=== PATIENT | male | born 1965 | race American Indian/Alaskan Native ===

== ENCOUNTER 2016-10-25 14:32 | Inpatient (IN) | payer MEDICAID ==
--- NOTE | 2016-10-25 15:12 | C.PDOC ---
History Of Present Illness 51-year-old male, PMHx includes Seizures (on Keppra), is brought to the emergency department by EMS, accompanied by father with complaints of a witnessed tonic colonic seizure just prior to arrival, that lasted a few minutes. In ED, patient appears to be post-ictal. No vomiting, bladder/bowel incontinence, tongue lacerations, or any other associated symptoms. Time Seen by Provider: 10/25/16 14:44 Chief Complaint (Nursing): Seizure History Per: Family History/Exam Limitations: no limitations Recent Seizure Activity Began: Just Before Arrival Length Of Seizures (Duration): Minutes Past Medical History Reviewed: Historical Data, Nursing Documentation, Vital Signs Vital Signs: Last Vital Signs Temp 99.2 F 10/25/16 15:15 Pulse 81 10/25/16 17:45 Resp 95 H 10/25/16 16:17 BP 152/111 H 10/25/16 17:45 Pulse Ox 96 10/25/16 16:41 - Medical History PMH: No Chronic Diseases Family History: States: No Known Family Hx - Social History Hx Alcohol Use: No Hx Substance Use: No - Immunization History Hx Tetanus Toxoid Vaccination: No Hx Influenza Vaccination: No Hx Pneumococcal Vaccination: No Review Of Systems Except As Marked, All Systems Reviewed And Found Negative. Constitutional: Negative for: Fever, Chills Cardiovascular: Negative for: Chest Pain Respiratory: Negative for: Shortness of Breath Gastrointestinal: Negative for: Nausea, Vomiting Skin: Negative for: Rash Neurological: Negative for: Weakness, Numbness, Headache, Dizziness Physical Exam - Physical Exam Appears: Non-toxic, No Acute Distress, Other (post-ictal) Skin: Warm, Dry, No Rash Head: Atraumatic, Normacephalic Eye(s): bilateral: Normal Inspection, PERRL, EOMI Ear(s): Bilateral: Normal Nose: Normal Oral Mucosa: Moist Lips: Normal Appearing Neck: Normal ROM Cardiovascular: Rhythm Regular, No Friction Rub, No Murmur Respiratory: Normal Breath Sounds, No Accessory Muscle Use Gastrointestinal/Abdominal: Soft, No Tenderness Extremity: Normal ROM, No Tenderness, No Swelling Neurological/Psych: Oriented x3, Normal Cranial Nerves, Normal Motor, Other (No focal deficit) Gait: Steady ED Course And Treatment - Laboratory Results Result Diagrams: 10/25/16 15:22 10/25/16 15:22 O2 Sat by Pulse Oximetry: 96 (on RA) Pulse Ox Interpretation: Normal Medical Decision Making Medical Decision Making: Old visits reviewed, and there are no prior visits. At 1315, the patient experienced a seizure in the ED. Patient was placed on NRB. Ativan 2mg IM ordered. BP found to be elevated. Labetalol and Lopressor given,. On second re-exam the patient continues to be drowsy and post-ictal. The case was discussed with Dr. Martino who agrees to admit the patient to her service. requests neurologist consult for Dr. Alan. Disposition - Disposition Disposition: HOSPITALIZED Disposition Time: 16:39 Condition: FAIR - POA Present On Arrival: None - Clinical Impression Clinical Impression: Seizure, Uncontrolled hypertension - Scribe Statement The provider has reviewed the documentation as recorded by the Scribe (Isabella Virk) All medical record entries made by the Scribe were at my direction and personally dictated by me. I have reviewed the chart and agree that the record accurately reflects my personal performance of the history, physical exam, medical decision making, and the department course for this patient. I have also personally directed, reviewed, and agree with the discharge instructions and disposition.
[2016-10-25 15:26] LABS: BASO % 0.3 % (0.0-2.0); HEMOGLOBIN 14.3 g/dL (12.0-18.0); LYMPH # 1.1 K/uL (1.0-4.3); LYMPH % 10.9 % (20.0-40.0); MEAN CELL VOLUME 94.5 fL (80.0-94.0); MEAN CORPUSCULAR HEMOGLOBIN 31.9 pg (27.0-31.0); MEAN CORPUSCULAR HGB CONC 33.7 g/dL (33.0-37.0); MONO # 1.1 K/uL (0.0-0.8); MONO % 11.3 % (0.0-10.0); NEUT # 7.9 K/uL (1.8-7.0); NEUT % 77.5 % (50.0-75.0); RBC 4.47 Mil/uL (4.40-5.90); RED CELL DISTRIBUTION WIDTH 13.6 % (11.5-14.5); WHITE BLOOD COUNT 10.2 K/uL (4.8-10.8)
[2016-10-25 15:41] LABS: ALBUMIN 4.6 g/dL (3.5-5.0)
[2016-10-25 15:44] LABS: ALB/GLOB RATIO 1.3 (1.0-2.1); ALT/SGPT 27 U/L (21-72); AST/SGOT 37 U/L (17-59); BLOOD UREA NITROGEN 13 mg/dL (9-20); CALCIUM 9.4 mg/dl (8.6-10.4); GFR AFRICAN-AMERICAN > 60; GFR NON-AFRICAN AMERICAN > 60
[2016-10-25 15:56] LABS: URINE BACTERIA RARE (<OCC); URINE BILIRUBIN NEGATIVE (NEGATIVE); URINE BLOOD 2+ (NEGATIVE); URINE CLARITY Hazy (Clear); URINE COLOR Yellow (YELLOW); URINE GLUCOSE (UA) NORMAL (Normal); URINE LEUKOCYTE ESTERASE NEG Leu/uL (Negative); URINE NITRATE NEGATIVE (NEGATIVE); URINE PROTEIN 3+ mg/dL (NEGATIVE); URINE UROBILINOGEN NORMAL mg/dL (0.2-1.0)
[2016-10-25 16:01] LABS: BENZODIAZEPINES, UR NEGATIVE (NEGATIVE)
[2016-10-25 16:02] LABS: BARBITURATES, UR NEGATIVE (NEGATIVE)
[2016-10-25 16:03] LABS: OPIATES, UR NEGATIVE (NEGATIVE)
[2016-10-25 16:04] LABS: PHENCYCLIDINE, UR NEGATIVE (NEGATIVE)
--- NOTE | 2016-10-25 16:35 | CT ---
PROCEDURE: CT HEAD WITHOUT CONTRAST. HISTORY: seizure COMPARISON: None available. TECHNIQUE: Axial computed tomography images were obtained through the head/brain without intravenous contrast. Radiation dose: Total exam DLP = 900.9 mGy-cm. This CT exam was performed using one or more of the following dose reduction techniques: Automated exposure control, adjustment of the mA and/or kV according to patient size, and/or use of iterative reconstruction technique. FINDINGS: HEMORRHAGE: No intracranial hemorrhage. BRAIN: Focal encephalomalacia and gliosis seen at the left frontal lobe. There is also small focal encephalomalacia adjacent to the right lateral ventricle. No atrophy or chronic microvascular ischemic changes. VENTRICLES: Unremarkable. No hydrocephalus. CALVARIUM: Deformity in the right zygomatic arch and lateral wall of the right maxillary sinus suggestive of old fractures. PARANASAL SINUSES: Mild mucosal thickening and small air-fluid level seen at the right maxillary sinus suggestive of sinusitis. MASTOID AIR CELLS: Unremarkable as visualized. No inflammatory changes. OTHER FINDINGS: None. IMPRESSION: No evidence of acute intracranial hemorrhage mass effect or midline shift. Moderate-size encephalomalacia at the left frontal lobe and small size encephalomalacia at the right basal ganglia suggestive of old injury. Old fracture at the right zygomatic arch and lateral wall of the right maxillary sinus. Mucosal thickening and air-fluid level at the right maxillary sinus suggestive of sinusitis.
[2016-10-25] MEDS ORDERED: Labetalol 25mg/5ml Syringe IV STA (16:37)
[2016-10-25] MEDS ORDERED: Labetalol 25mg/5ml Syringe ONE ×2 (16:58→20:27)
[2016-10-25] MEDS ORDERED: Metoprolol 1 mg/ml Inj IVP STA (17:17)
--- NOTE | 2016-10-25 17:21 | RAD ---
PROCEDURE: CHEST RADIOGRAPH, 1 VIEW HISTORY: Seizure COMPARISON: None available. FINDINGS: LUNGS: No evidence of infiltrate or consolidation in the lungs PLEURA: No pneumothorax or pleural fluid seen. CARDIOVASCULAR: Normal. OSSEOUS STRUCTURES: No significant abnormalities. VISUALIZED UPPER ABDOMEN: Normal. OTHER FINDINGS: None. IMPRESSION: No active disease.
[2016-10-25] MEDS ORDERED: Sodium Chloride 0.9% 1,000 ML IV ONE (17:52)
[2016-10-25] MEDS ORDERED: Metoprolol 1 mg/ml Inj IVP ONE (19:51)
[2016-10-25] MEDS ORDERED: Labetalol 25mg/5ml Syringe IVP STA (20:23)
[2016-10-25] MEDS ORDERED: Nitroglycerin 2% Ointment Foilpak UD TOP STA (21:59)
[2016-10-25] MEDS ORDERED: Nitroglycerin 2% Ointment Foilpak UD TOP ONE (22:12)
[2016-10-26 08:09] LABS: BASO # 0.1 K/uL (0.0-0.2); BASO % 0.5 % (0.0-2.0); EOS % 0.2 % (0.0-4.0); HEMOGLOBIN 12.5 g/dL (12.0-18.0); LYMPH # 1.7 K/uL (1.0-4.3); MEAN CELL VOLUME 96.1 fL (80.0-94.0); MEAN CORPUSCULAR HGB CONC 33.3 g/dL (33.0-37.0); MEAN PLATELET VOLUME 9.3 fL (7.2-11.7); MONO % 9.9 % (0.0-10.0); NEUT # 7.7 K/uL (1.8-7.0); NEUT % 73.4 % (50.0-75.0); RBC 3.91 Mil/uL (4.40-5.90); RED CELL DISTRIBUTION WIDTH 13.5 % (11.5-14.5); WHITE BLOOD COUNT 10.5 K/uL (4.8-10.8)
[2016-10-26 08:31] LABS: ALBUMIN 3.8 g/dL (3.5-5.0)
[2016-10-26 08:34] LABS: ALB/GLOB RATIO 1.2 (1.0-2.1); ALT/SGPT 28 U/L (21-72); AST/SGOT 25 U/L (17-59); BLOOD UREA NITROGEN 13 mg/dL (9-20); CALCIUM 8.9 mg/dl (8.6-10.4); GFR AFRICAN-AMERICAN > 60; GFR NON-AFRICAN AMERICAN > 60
[2016-10-26 08:35] LABS: HDL CHOLESTEROL 67 mg/dL (30-70)
[2016-10-26 08:46] LABS: LDL CHOLESTEROL 71 mg/dL (0-129)
[2016-10-26] MEDS: levETIRAcetam 100 mg/ml (5ml) Oral Syringe PO SCH ×2 (09:39→17:58)
--- NOTE | 2016-10-26 10:28 | CP.PCM.PN ---
Subjective - Date & Time of Evaluation Date of Evaluation: 10/26/16 Time of Evaluation: 09:50 - Subjective Subjective: Patient is seen and examined at bedside. Denies any further episodes of seizures. denies any headache, chest pain. Objective - Vital Signs/Intake and Output Vital Signs (last 24 hours): Temp Pulse Resp BP Pulse Ox 98.5 F 64 20 167/97 H 97 10/26/16 00:00 10/26/16 04:00 10/26/16 00:00 10/26/16 09:39 10/26/16 00:00 Intake and Output: 10/26/16 10/26/16 06:59 18:59 Intake Total 240 Balance 240 - Medications Medications: Current Medications Carvedilol (Coreg) 25 mg PO BID [facility] Last Admin: 10/26/16 09:39 Dose: 25 mg Carvedilol (Coreg) 25 mg PO BID [facility] Last Admin: 10/26/16 10:09 Dose: Not Given Levetiracetam (Keppra) 750 mg PO BID [facility] Last Admin: 10/26/16 09:39 Dose: 750 mg Rosuvastatin Calcium (Crestor) 5 mg PO [facility] - Labs Labs: 10/26/16 07:59 10/26/16 07:59 Assessment and Plan - Assessment and Plan (Free Text) Assessment: middle aged male with Uncontrolled hypertension Seizure disorder with break through seizures probably secondary to non compliance Hypokalemia Right Maxillary sinusitis Plan: Keppra increased to 750 mg po bid Continue with coreg 25 mg po bid Start lisinopril 10 mg po daily adjust meds as needed Supplement Kdur Start rocephin for sinusitis
[2016-10-26] MEDS ORDERED: Potassium Chloride 20 mEq ER Tab PO STA (11:15)
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
[2016-10-27] MEDS: levETIRAcetam 100 mg/ml (5ml) Oral Syringe PO SCH ×2 (09:09→17:48)
--- NOTE | 2016-10-27 10:06 | CP.PCM.PN ---
Subjective - Date & Time of Evaluation Date of Evaluation: 10/27/16 Time of Evaluation: 10:00 - Subjective Subjective: Progress note dictated #[id number] Objective - Vital Signs/Intake and Output Vital Signs (last 24 hours): Temp Pulse Resp BP Pulse Ox 97.9 F 51 L 18 158/96 H 97 10/27/16 09:17 10/27/16 09:17 10/27/16 09:17 10/27/16 09:17 10/27/16 09:17 Intake and Output: 10/27/16 10/27/16 06:59 18:59 Intake Total 500 Output Total 200 Balance 300 - Medications Medications: Current Medications Carvedilol (Coreg) 25 mg PO BID [facility] Last Admin: 10/27/16 09:10 Dose: 25 mg Ceftriaxone Sodium 1 gm/ (Sodium Chloride) 100 mls @ 100 mls/hr IVPB DAILY [facility] Last Admin: 10/27/16 09:10 Dose: 100 mls/hr Levetiracetam (Keppra) 750 mg PO BID [facility] Last Admin: 10/27/16 09:09 Dose: 750 mg Lisinopril (Zestril) 10 mg PO DAILY [facility] Last Admin: 10/27/16 09:10 Dose: 10 mg Rosuvastatin Calcium (Crestor) 5 mg PO HS [facility] Last Admin: 10/26/16 22:05 Dose: 5 mg Thiamine HCl (Vitamin B1 Tab) 100 mg PO DAILY [facility] Last Admin: 10/27/16 09:10 Dose: 100 mg - Labs Labs: 10/26/16 07:59 10/26/16 07:59
--- NOTE | 2016-10-27 12:34 | CON ---
DATE: 10/25/2016 REASON FOR CONSULTATION: Breakthrough seizures. HISTORY OF PRESENT ILLNESS: The patient is a 51-year-old gentleman with past medical history of seizure disorder, CVA several years ago, liver disease, probably cirrhosis. The patient was admitted because of breakthrough seizures at home, witnessed by father, lasted few minutes followed by postictal confusion. The patient's postictal confusion continued while in the emergency room. The patient gradually regained his composure and orientation. No tongue biting or bowel or urinary incontinence. The patient stated that the last seizure was a month ago, having average once a month. As per mother, the patient still is drinking and was diagnosed with liver disease and despite that, he is drinking. PAST MEDICAL HISTORY: As mentioned above. MEDICATIONS: Keppra 500 mg b.i.d., but the patient is noncompliant with the medication. SOCIAL HISTORY: Heavy drinker. Denied smoking. ALLERGIES: No known drug allergies to medications. FAMILY HISTORY: Noncontributory. PHYSICAL EXAMINATION: VITAL SIGNS: Blood pressure 152/111, respirations *------*, pulse 81, and temperature 99.2. MENTAL STATE: The patient is alert, awake, and oriented x3. Decreased attention span, short-term memory, slow mental processing, able to follow 2-step commands, unable to follow 3-step commands. No agnosia, no apraxia, no right or left confusion. CRANIAL NERVES: Pupils 3 mm bilaterally active. Positive nystagmus on end gaze with icteric sclera. No gaze preference. No field defect. No facial asymmetry. No ptosis. Extraocular movements intact. No double vision, no blurred vision. MOTOR: Normal tone in upper and lower extremities. Upper extremity deltoid, elbow, specialist physicians 5/5. Lower extremities; hip flexion, knee flexion and extension, ankle 5/5. Deep tendon reflexes 1 in upper extremities, absent in bilateral lower extremities. Plantar flexion in both sides. SENSORY: Pinprick, light touch, *------*. Coordination and [id number] intact. Romberg deferred. LABORATORY DATA: CAT scan of the brain reviewed, consistent with large distal, frontal, cortical, and subcortical infarct. Labs reviewed. IMPRESSION: 1. Breakthrough seizures secondary to noncompliance. I have increased the patient's dose of Keppra to 750 q. 12 hours. Strongly recommended the patient to comply with the medications. 2. Subicteric sclera probably secondary to cirrhosis or hepatic failure. 3. Encephalopathy secondary to probably liver failure or cirrhosis. 4. 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 The above discussed with the mother. Neuro lehman, no further workup recommended, just continue the Keppra 750 q. 12 hours. Thanks for the consultation. Blanco Murillo MD
--- NOTE | 2016-10-28 00:07 | PN ---
DATE: 10/27/2016 SUBJECTIVE: The patient was seen and examined at the bedside. The patient did not have any further episodes of seizures. Blood pressure is slightly better than yesterday. The patient's mother apparently notified the nursing personnel on the floor that the patient is homeless and cannot be taken back to his parent's house. The patient denies any other complaints on examination. PHYSICAL EXAMINATION GENERAL: Middle-aged man, lying in bed, in the acute distress. VITAL SIGNS: Blood pressure 158/96, pulse 51, respiration 18, temperature is 97.9 degrees and O2 sat 97% on room air. HEENT: Pupils are equal, round and reactive to light and accommodation. Extraocular muscles intact. No icterus. No pallor. No oral thrash. No pharyngeal congestion. NECK: Supple. No JVD. No thyromegaly. CARDIOPULMONARY: S1 and S2 present, regular. CHEST: Lungs are clear bilaterally on this patient. LUNGS: Bilateral clear breath sounds. No wheezing or rhonchi. ABDOMEN: Soft and nontender. Bowel sounds present. No guarding. No rigidity. No rebound tenderness noted. EXTREMITIES: No edema. Possible peripheral pulses. [employer]IC: Alert, awake and oriented X3. No focal deficits noted. MEDICATIONS: Include Coreg 25 mg p.o. b.i.d., Rocephin 1 g daily, Keppra 750 mg p.o. b.i.d., lisinopril 10 mg daily, Crestor 5 mg at bedtime and thiamine 100 mg p.o. daily. LABORATORY DATA: No new labs from this morning. Triglycerides 97, cholesterol 155, LDL 71, HDL 67. EEG pending. ASSESSMENT AND PLAN: Middle-aged male with hypertension, seizure disorder, non-compliant with medications admitted for breakthrough seizures, hyperlipidemia. The patient's Keppra has been increased to 750 mg b.i.d. Neurology consult appreciated for possible EEG today. Blood pressure is slightly high. We will monitor his blood pressure on Coreg 25 mg p.o. b.i.d. and lisinopril 10 mg daily. We will adjust medication as needed. Request case management and psychosocial rehabilitation counselor with consult for possible [facility] placement. If cleared by neurology and psychosocial rehabilitation counselor, we will plan discharging the patient home. Kal Martino MD [facility] # [id number]
[2016-10-28 07:02] LABS: BASO % 0.4 % (0.0-2.0); EOS % 0.7 % (0.0-4.0); HEMOGLOBIN 13.5 g/dL (12.0-18.0); LYMPH # 2.1 K/uL (1.0-4.3); MEAN CELL VOLUME 97.6 fL (80.0-94.0); MEAN CORPUSCULAR HEMOGLOBIN 31.5 pg (27.0-31.0); MEAN CORPUSCULAR HGB CONC 32.3 g/dL (33.0-37.0); MONO # 0.6 K/uL (0.0-0.8); MONO % 11.3 % (0.0-10.0); NEUT # 2.6 K/uL (1.8-7.0); NEUT % 48.6 % (50.0-75.0); RBC 4.27 Mil/uL (4.40-5.90); RED CELL DISTRIBUTION WIDTH 13.6 % (11.5-14.5); WHITE BLOOD COUNT 5.3 K/uL (4.8-10.8)
[2016-10-28 07:14] LABS: ALBUMIN 3.6 g/dL (3.5-5.0)
[2016-10-28 07:17] LABS: ALB/GLOB RATIO 1.2 (1.0-2.1); ALT/SGPT 24 U/L (21-72); AST/SGOT 25 U/L (17-59); BLOOD UREA NITROGEN 16 mg/dL (9-20); GFR AFRICAN-AMERICAN > 60; GFR NON-AFRICAN AMERICAN > 60
[2016-10-28 07:18] LABS: CALCIUM 9.1 mg/dl (8.6-10.4)
--- NOTE | 2016-10-28 10:45 | CP.PCM.PN ---
Subjective - Date & Time of Evaluation Date of Evaluation: 10/28/16 Time of Evaluation: 10:30 - Subjective Subjective: Discharge summary dictated #[id number] Objective - Vital Signs/Intake and Output Vital Signs (last 24 hours): Temp Pulse Resp BP Pulse Ox 97.7 F 49 L 20 127/78 98 10/28/16 07:00 10/28/16 07:00 10/28/16 07:00 10/28/16 10:06 10/28/16 07:00 - Medications Medications: Current Medications Carvedilol (Coreg) 25 mg PO BID [facility] Last Admin: 10/28/16 10:06 Dose: Not Given Ceftriaxone Sodium 1 gm/ (Sodium Chloride) 100 mls @ 100 mls/hr IVPB DAILY [facility] Last Admin: 10/28/16 10:07 Dose: 100 mls/hr Levetiracetam (Keppra) 750 mg PO BID [facility] Last Admin: 10/27/16 17:48 Dose: 750 mg Lisinopril (Zestril) 10 mg PO DAILY [facility] Last Admin: 10/28/16 10:07 Dose: 10 mg Rosuvastatin Calcium (Crestor) 5 mg PO HS [facility] Last Admin: 10/27/16 21:55 Dose: 5 mg Thiamine HCl (Vitamin B1 Tab) 100 mg PO DAILY [facility] Last Admin: 10/27/16 09:10 Dose: 100 mg - Labs Labs: 10/28/16 06:54 10/28/16 06:54
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
[2016-10-28] MEDS: levETIRAcetam 100 mg/ml (5ml) Oral Syringe PO SCH (11:30)
--- NOTE | 2016-10-28 15:55 | CP.PCM.PN ---
Subjective - Date & Time of Evaluation Date of Evaluation: 10/28/16 Time of Evaluation: 15:55 - Subjective Subjective: RX FOR VASOTEC AND KEPPRA DOSES CHANGED PER Rolanda GUTIERREZ. NO FURTHER ORDERS. Objective - Vital Signs/Intake and Output Vital Signs (last 24 hours): Temp Pulse Resp BP Pulse Ox 97.7 F 47 L 20 127/78 98 10/28/16 07:00 10/28/16 08:00 10/28/16 07:00 10/28/16 10:06 10/28/16 07:00 Intake and Output: 10/28/16 10/28/16 06:59 18:59 Intake Total 530 Balance 530 - Medications Medications: Current Medications Carvedilol (Coreg) 25 mg PO BID [facility] Last Admin: 10/28/16 10:06 Dose: Not Given Ceftriaxone Sodium 1 gm/ (Sodium Chloride) 100 mls @ 100 mls/hr IVPB DAILY [facility] Last Admin: 10/28/16 10:07 Dose: 100 mls/hr Levetiracetam (Keppra) 750 mg PO BID [facility] Last Admin: 10/28/16 11:30 Dose: 750 mg Lisinopril (Zestril) 10 mg PO DAILY [facility] Last Admin: 10/28/16 10:07 Dose: 10 mg Rosuvastatin Calcium (Crestor) 5 mg PO HS [facility] Last Admin: 10/27/16 21:55 Dose: 5 mg Thiamine HCl (Vitamin B1 Tab) 100 mg PO DAILY [facility] Last Admin: 10/28/16 11:30 Dose: 100 mg - Labs Labs: 10/28/16 06:54 10/28/16 06:54
[2016-10-28 16:20] VITALS: BP 155/105; PULSE 50; RESP 18; TEMP 97.5; O2SAT 100
[2016-10-28 19:13] LABS: SQUAMOUS EPITHIAL 1 /hpf (0-5); URINE BACTERIA RARE (<OCC); URINE BILIRUBIN NEGATIVE (NEGATIVE); URINE BLOOD NEGATIVE (NEGATIVE); URINE CLARITY Clear (Clear); URINE COLOR Yellow (YELLOW); URINE GLUCOSE (UA) NORMAL (Normal); URINE LEUKOCYTE ESTERASE NEG Leu/uL (Negative); URINE NITRATE NEGATIVE (NEGATIVE); URINE PROTEIN NEGATIVE (NEGATIVE); URINE UROBILINOGEN NORMAL mg/dL (0.2-1.0)
--- NOTE | 2016-10-29 14:15 | DS ---
DISCHARGE DIAGNOSES: 1. Status epilepticus with breakthrough seizures. 2. Uncontrolled hypertension. 3. Hypokalemia, resolved. 4. Hyperlipidemia. 5. Sinusitis. 6. Noncompliance. HISTORY OF PRESENT ILLNESS: Mr. Elaine is a 51-year-old male with past medical history of hypertension, seizure disorder, noncompliance with medications, admitted for witnessed seizure. The patient was found to be having uncontrolled blood pressure and seizures, admitted for further management. Today, the patient is feeling much better, denies any headache, dizziness, denies any chest pain, shortness of breath or wheezing. Denies any nausea, vomiting, abdominal pian, diarrhea or constipation. Denies any neurologic symptoms. Denies any urinary complaints. Denies any leg pain or joint swelling. PHYSICAL EXAMINATION: GENERAL: A middle-aged male lying in bed in no acute distress. VITAL SIGNS: Blood pressure of 127/78, pulse of 55, respirations of 20, temperature of 97.7 degrees Fahrenheit, and O2 saturations 98% on room air. HEENT: Pupils are equal, round and reactive to light and accommodation. Extraocular muscles are intact. No icterus and no pallor. No oral thrush. No pharyngeal congestion. NECK: Supple. No JVD. No thyromegaly. CHEST: Lungs are clear bilaterally on respiration. LUNGS: Bilateral vesicular breath sounds. No wheezing or rhonchi. CARDIOVASCULAR SYSTEM: S1 and S2 present and regular. ABDOMEN: Soft and nontender. Bowel sounds are present. No guarding and no rigidity. No rebound tenderness noted. CENTRAL NERVOUS SYSTEM: Alert, awake and oriented x 3. No focal deficits noted. EXTREMITIES: No edema. Palpable peripheral pulses. LABORATORY DATA: Labs done from this morning; WBC 5.3, hemoglobin 13.5, hematocrit 41.7, and platelets 212. Sodium 139, potassium 4.0, chloride 100, bicarb 24, BUN 16, and creatinine 0.9. Glucose 85, calcium 9.1, total bilirubin 0.6, AST 25, ALT 24, and alkaline phosphatase 55. Urine drug screen negative. CT head negative. HOSPITAL COURSE: The patient was admitted to the hospital for seizures and uncontrolled hypertension. The patient was noncompliant with medication, not taking any medication at home. The patient was restarted on his medication. The patient was found to be having maxillary sinusitis for which the patient was started on Rocephin. The patient's blood pressure is controlled. The patient remained seizure free. The patient is otherwise hemodynamically stable. The patient is being discharged. Advised the patient to follow up at PMD and neurology as outpatient. CONDITION UPON DISCHARGE: The patient is alert, awake and oriented x3 and hemodynamically stable. DISCHARGE INSTRUCTIONS: Follow up with PMD. Follow up with neurology. Advised patient to return to the ED if any symptoms occur. DISCHARGE MEDICATIONS: Coreg 25 mg p.o.. daily, Augmentin 875 mg p.o. b.i.d. for 5 days, Keppra 750 mg p.o. b.i.d., lisinopril 10 mg daily, Crestor 5 mg at bedtime, and thiamine 100 mg p.o. daily. DISCHARGE DIET: Heart healthy and low cholesterol diet. Kal Martino MD
--- NOTE | 2016-10-30 14:04 | PN ---
DATE OF EVALUATION: 10/28/2016 TIME OF EVALUATION: 7:00 a.m. NEUROLOGIC PROBLEMS: Generalized tonic-clonic seizure due to noncompliance with the medications. The patient also has a history of ETOH abuse. PHYSICAL EXAMINATION: VITAL SIGNS: Blood pressure 121/78, mean arterial pressure of 92, respiratory rate 18, temperature 97.5 and pulse rate 95 and regular. GENERAL: The patient is more awake, alert, oriented to person, place and time. No hallucinations. No confabulation. No suicidal ideation. ALCOHOLIC COUNSELOR: Cranial nerves are intact. Rest of the examination is unchanged compared to my previous examination. PLAN: The patient is stable at this time. If medically stable, the patient can be discharged and the patient should have social service evaluation for detoxification from alcohol abuse. Aram Alan MD
--- NOTE | 2016-11-03 10:02 | EEG ---
DATE: 10/28/2016 CONDITION OF THE RECORDING: This is a resting electroencephalogram of awake and drowsy adult during the study. Photic stimulation was performed. Hyperventilation was not performed. The resting electroencephalogram consist of diffuse 4-5 Hz theta activities mixed with lower delta activities seen in bilateral cortical leads. The slow activity continues to be noted from the beginning. There are no paroxysmal activities or focus really noted throughout the study. IMPRESSION: This is an abnormal electroencephalogram because of persistent slowing throughout. The record is suggestive of bilateral cerebral dysfunction. This is probably secondary to metabolic vascular degenerative process. Please correlate the findings with neurological and radiological studies. Aram Alan MD
== END 2016-10-28 17:40 | disposition home or self-care (01) | DRG 532 ==
LOC: C.ER 14:32 → C.9E 17:47 → C.6T 19:10 → OBSVTOIN 10-27 10:06
PROVIDERS: ADMIT Internal Medicine; ATTEND Internal Medicine
DX: G40.901 Epilepsy, unspecified, not intractable, with status epilepticus (principal); K72.90 Hepatic failure, unspecified without coma; F05 Delirium due to known physiological condition; K74.60 Unspecified cirrhosis of liver; E87.6 Hypokalemia; E78.5 Hyperlipidemia, unspecified; F17.210 Nicotine dependence, cigarettes, uncomplicated; G62.9 Polyneuropathy, unspecified; I10 Essential (primary) hypertension; J32.0 Chronic maxillary sinusitis; Z59.0 Homelessness; Z79.899 Other long term (current) drug therapy; Z86.73 Personal history of transient ischemic attack (TIA), and cerebral infarction without residual deficits; Z91.14 Patient's other noncompliance with medication regimen

== ENCOUNTER 2016-11-13 02:55 | Emergency (ER) | payer MEDICAID, OTHER ==
[2016-11-13 03:16] VITALS: RESP 18
[2016-11-13] MEDS ORDERED: Sodium Chloride 0.9% 500 ML IV ONE ×2 (03:38→03:47)
--- NOTE | 2016-11-13 03:43 | C.PDOC ---
History Of Present Illness 51 year old male who presents to the ER after he was found on laying on the porch, intoxicated, by his father. Father states patient has a drinking problem ; patient was found with multiple abrasions to his face, ear and extremities. Patient has no complaints at this time. Time Seen by Provider: 11/13/16 03:18 Chief Complaint (Nursing): Substance Abuse History Per: Patient History/Exam Limitations: no limitations Onset/Duration Of Symptoms: Hrs Current Symptoms Are (Timing): Still Present Suicide/Self Injury Attempted (Context): None Modifying Factor(s): Alcohol Associated Symptoms: denies: Depression, Suicidal Thoughts, Suicidal Plan Involuntary Hold By: None Recent travel outside of the [place]: No Past Medical History Reviewed: Historical Data, Nursing Documentation, Vital Signs Vital Signs: Last Vital Signs Temp 98.6 F 11/13/16 03:06 Pulse 65 11/13/16 04:32 Resp 18 11/13/16 04:32 BP 164/98 H 11/13/16 04:32 Pulse Ox 95 11/13/16 04:55 - Medical History PMH: COPD, HTN, Seizures Surgical History: No Surg Hx Family History: States: Unknown Family Hx - Social History Hx Alcohol Use: No Hx Substance Use: No - Immunization History Hx Tetanus Toxoid Vaccination: No Hx Influenza Vaccination: No Hx Pneumococcal Vaccination: No Review Of Systems Constitutional: Negative for: Fever, Chills Gastrointestinal: Negative for: Nausea, Vomiting, Diarrhea Skin: Positive for: Other (Abrasions) Physical Exam - Physical Exam Appears: Non-toxic, Other (ETOH on breath) Skin: Warm, Dry Head: Normacephalic, Abrasion (Multiple to left facial area involving the left eyebrow and left maxilla), Laceration (Small puncture to left eyebrow and left forehead) Eye(s): bilateral: Normal Inspection, PERRL, EOMI Ear(s): Left: Other (Skin avulsion of posterior left auricle w/ superfical laceration of interior helix. No hemotympanum), Right: Normal Oral Mucosa: Moist Neck: Normal, Supple Chest: Symmetrical, No Tenderness Cardiovascular: Rhythm Regular, No Murmur Respiratory: Normal Breath Sounds, No Rales, No Rhonchi, No Wheezing Gastrointestinal/Abdominal: Soft, No Tenderness Extremity: Normal ROM (x4), Other (Large abrasion to left shoulder. Multiple abrasions to bilateral legs and knees) Neurological/Psych: Oriented x3, Normal Speech, Normal Cognition ED Course And Treatment - Laboratory Results Result Diagrams: 11/13/16 03:45 11/13/16 03:45 O2 Sat by Pulse Oximetry: 95 Pulse Ox Interpretation: Normal - CT Scan/US CT Head Other Rad Studies (CT/US): Read By Radiologist, Radiology Report Reviewed CT/US Interpretation: EXAM: CT Head Without Intravenous Contrast. CLINICAL HISTORY: 51 years old, male; Pain and injury or trauma; Fall; Initial encounter ; Wound, open; Forehead;. Without residual foreign body; Headache; Patient HX: 10-25-16; Additional info: Trauma, fall, ETOH. TECHNIQUE: Axial computed tomography images of the head/brain without intravenous contrast. This CT exam. was performed using one or more of the following dose reduction techniques: automated exposure. control, adjustment of the mA and/or kV according to patient size, and/or use of iterative. reconstruction technique. COMPARISON: No relevant prior studies available. FINDINGS: Brain: Mild atrophy. No intracranial hemorrhage. No mass. Mild encephalomalacia within LEFT. frontal region. Probable chronic lacunar infarcts within LEFT basal ganglia, RIGHT jackson radiata. Few scattered foci of decreased attenuation within periventricular/subcortical white matter. No. edema. Ventricles: No hydrocephalus. Bones/joints: No acute fracture. Chronic fracture deformities RIGHT zygomatic arch, RIGHT. maxillary sinus. Soft tissues: LEFT frontal soft tissue swelling/irregularity. Sinuses: No acute sinusitis. Mastoid air cells: No mastoid effusion. Orbits: Unremarkable as visualized. IMPRESSION: 1. No intracranial hemorrhage. 2. Nonspecific white matter changes. 3. Incidental/ non-acute findings are described above. Progress Note: Blood work and CT head ordered. IV fluids administered.\. 7 am: Pt is awake , alert oriented x3, ambulatory with steady gait, refuses detox. Pt will be d/c home Reassessment Condition: Improved Laceration - Laceration Repair Lt ear/ face Wound Length (In cm): 2cm Description Of Wound: Linear, Clean Wound Cleansed With: Betadine, Sterile Saline Anesthesia: Lidocaine 1% Wound Examination: Irrigated With Saline Wound Closure: Skin Glue (to face), Suture (x 4 to left ear- post) Suture Technique And Material Used: Prolene (5.0) Wound Complexity: Intermediate (with skin avulsion to post ear) Disposition Counseled Patient/Family Regarding: Diagnosis, Need For Followup, Rx Given - Disposition Disposition Time: 07:00 Condition: STABLE Forms: [facility] [facility] (Maltese) - Clinical Impression Clinical Impression: Alcohol abuse, Facial laceration, Abrasions of multiple sites, Laceration of ear lobe - Scribe Statement The provider has reviewed the documentation as recorded by the Scribkaila Beltran All medical record entries made by the Nathalieibkaila were at my direction and personally dictated by me. I have reviewed the chart and agree that the record accurately reflects my personal performance of the history, physical exam, medical decision making, and the department course for this patient. I have also personally directed, reviewed, and agree with the discharge instructions and disposition.
[2016-11-13 03:48] LABS: BASO # 0.1 K/uL (0.0-0.2); BASO % 0.7 % (0.0-2.0); EOS # 0.1 K/uL (0.0-0.7); EOS % 0.7 % (0.0-4.0); HEMOGLOBIN 13.6 g/dL (12.0-18.0); LYMPH # 3.1 K/uL (1.0-4.3); LYMPH % 43.8 % (20.0-40.0); MEAN CELL VOLUME 96.1 fL (80.0-94.0); MEAN CORPUSCULAR HEMOGLOBIN 32.1 pg (27.0-31.0); MEAN CORPUSCULAR HGB CONC 33.4 g/dL (33.0-37.0); MEAN PLATELET VOLUME 9.8 fL (7.2-11.7); MONO # 0.5 K/uL (0.0-0.8); MONO % 7.3 % (0.0-10.0); NEUT # 3.4 K/uL (1.8-7.0); NEUT % 47.5 % (50.0-75.0); RBC 4.23 Mil/uL (4.40-5.90); RED CELL DISTRIBUTION WIDTH 13.2 % (11.5-14.5); WHITE BLOOD COUNT 7.1 K/uL (4.8-10.8)
[2016-11-13 03:55] LABS: ALBUMIN 4.2 g/dL (3.5-5.0)
[2016-11-13 03:58] LABS: ALB/GLOB RATIO 1.3 (1.0-2.1); ALT/SGPT 48 U/L (21-72); AST/SGOT 42 U/L (17-59); BLOOD UREA NITROGEN 20 mg/dL (9-20); GFR AFRICAN-AMERICAN > 60; GFR NON-AFRICAN AMERICAN > 60
[2016-11-13] MEDS ORDERED: Lidocaine/Epi 1% 1:100000 20 ML IJ ONE (04:38)
[2016-11-13] MEDS ORDERED: Lidocaine 2% w Epi 1:100,000 Inj IJ ONE (04:43)
[2016-11-13] MEDS ORDERED: Lidocaine 1% Inj (20ml) INFIL ONE (04:44)
[2016-11-13] MEDS ORDERED: Lidocaine 1% Inj (20ml) ONE (04:44)
--- NOTE | 2016-11-13 04:45 | CT ---
EXAM: CT Head Without Intravenous Contrast CLINICAL HISTORY: 51 years old, male; Pain and injury or trauma; Fall; Initial encounter; Wound, open; Forehead; Without residual foreign body; Headache; Patient HX: 10-25-16; Additional info: Trauma, fall, ETOH TECHNIQUE: Axial computed tomography images of the head/brain without intravenous contrast. This CT exam was performed using one or more of the following dose reduction techniques: automated exposure control, adjustment of the mA and/or kV according to patient size, and/or use of iterative reconstruction technique. COMPARISON: No relevant prior studies available. FINDINGS: Brain: Mild atrophy. No intracranial hemorrhage. No mass. Mild encephalomalacia within LEFT frontal region. Probable chronic lacunar infarcts within LEFT basal ganglia, RIGHT jackson radiata. Few scattered foci of decreased attenuation within periventricular/subcortical white matter. No edema. Ventricles: No hydrocephalus. Bones/joints: No acute fracture. Chronic fracture deformities RIGHT zygomatic arch, RIGHT maxillary sinus. Soft tissues: LEFT frontal soft tissue swelling/irregularity. Sinuses: No acute sinusitis. Mastoid air cells: No mastoid effusion. Orbits: Unremarkable as visualized. IMPRESSION: 1. No intracranial hemorrhage. 2. Nonspecific white matter changes. 3. Incidental/non-acute findings are described above.
[2016-11-13 04:55] VITALS: O2SAT 95
[2016-11-13] MEDS ORDERED: Bacitracin 500 Units/gm Oint Foilpak UD TOP ONE (05:46)
[2016-11-13] MEDS ORDERED: Bacitracin 500 Units/gm Oint Foilpak UD ONE (06:24)
[2016-11-13 06:56] VITALS: BP 167/91; PULSE 73; TEMP 98.3
== END 2016-11-13 07:14 | disposition home or self-care (01) ==
LOC: C.ER 02:55
DX: S01.312A Laceration without foreign body of left ear, initial encounter (principal); S01.132A Puncture wound without foreign body of left eyelid and periocular area, initial encounter; S01.83XA Puncture wound without foreign body of other part of head, initial encounter; S40.212A Abrasion of left shoulder, initial encounter; S80.812A Abrasion, left lower leg, initial encounter; S80.811A Abrasion, right lower leg, initial encounter; S80.212A Abrasion, left knee, initial encounter; S80.211A Abrasion, right knee, initial encounter; X58.XXXA Exposure to other specified factors, initial encounter; F10.10 Alcohol abuse, uncomplicated; Y90.8 Blood alcohol level of 240 mg/100 ml or more
CPT/HCPCS: 12011; 70450; 80053; 80320; 82948; 85025; 99285; J7040

== ENCOUNTER 2016-11-22 14:12 | Emergency (ER) | payer OTHER ==
[2016-11-22] MEDS ORDERED: Naproxen 550 mg Tab PO STA (14:41)
--- NOTE | 2016-11-22 14:56 | C.PDOC ---
History Of Present Illness Pt c/o right posterior neck pain. Contrary to triage note, pt denies seizure today or any other symptoms. Time Seen by Provider: 11/22/16 14:29 Chief Complaint (Nursing): Back Pain History Per: Patient Onset/Duration Of Symptoms: Days (few) Current Symptoms Are (Timing): Still Present Severity: Mild Associated Symptoms: None Exacerbating Factor(s): Turning Additional History Per: Prior Records Past Medical History Reviewed: Historical Data, Nursing Documentation, Vital Signs Vital Signs: Last Vital Signs Temp 98.0 F 11/22/16 15:39 Pulse 62 11/22/16 15:39 Resp 16 11/22/16 15:39 BP 169/104 H 11/22/16 15:39 Pulse Ox 100 11/22/16 15:39 - Medical History PMH: COPD, HTN, Seizures Family History: States: Unknown Family Hx - Social History Hx Alcohol Use: Yes Hx Substance Use: No - Immunization History Hx Tetanus Toxoid Vaccination: No Hx Influenza Vaccination: No Hx Pneumococcal Vaccination: No Review Of Systems Except As Marked, All Systems Reviewed And Found Negative. Constitutional: Negative for: Fever ENT: Negative for: Throat Pain, Throat Swelling Cardiovascular: Negative for: Chest Pain Respiratory: Negative for: Shortness of Breath Gastrointestinal: Negative for: Nausea, Vomiting, Abdominal Pain Musculoskeletal: Negative for: Arm Pain, Back Pain Skin: Negative for: Rash Neurological: Negative for: Weakness, Numbness, Altered Mental Status, Headache Physical Exam - Physical Exam Appears: Non-toxic, No Acute Distress Skin: Normal Color, Warm, Dry Head: Normacephalic Eye(s): bilateral: PERRL, EOMI Neck: Normal ROM, No Midline Cervical Tenderness, Paracervical Tenderness (right ), No Step Off Deformity, Supple Chest: Symmetrical Cardiovascular: Rhythm Regular Respiratory: Normal Breath Sounds, No Accessory Muscle Use Gastrointestinal/Abdominal: Soft, No Tenderness Back: No CVA Tenderness Extremity: Normal ROM, No Deformity Neurological/Psych: Oriented x3, Normal Speech, Normal Cognition, Normal Motor, Normal Sensation Gait: Steady ED Course And Treatment O2 Sat by Pulse Oximetry: 99 Pulse Ox Interpretation: Normal Progress Note: Pt's family arrived to the ED. They state that pt is not taking his medications as prescribed. They brought the bag of medication with them. Pt took his medications in the ED. Reassessment Condition: Improved Disposition Counseled Patient/Family Regarding: Diagnosis, Need For Followup, Rx Given - Disposition Disposition: HOME/ ROUTINE Disposition Time: 15:36 Condition: IMPROVED Additional Instructions: Take your medications as prescribed. Avoid alcohol. Follow up with your doctor. Return to the ER if you develop seizure, worsening of symptoms or if you have any other concerns. Instructions: Cervical Strain (DC) Forms: [facility] [facility] (Hebrew) - Clinical Impression Clinical Impression: Neck muscle strain
[2016-11-22] MEDS ORDERED: Naproxen 550 mg Tab PO ONE (15:05)
[2016-11-22 15:40] VITALS: BP 169/104; PULSE 62; RESP 16; TEMP 98
[2016-11-22 15:55] VITALS: O2SAT 99
== END 2016-11-22 16:07 | disposition home or self-care (01) ==
LOC: C.ER 14:12
DX: S16.1XXA Strain of muscle, fascia and tendon at neck level, initial encounter (principal); X58.XXXA Exposure to other specified factors, initial encounter

== ENCOUNTER 2016-11-29 22:30 | Emergency (ER) | payer OTHER ==
[2016-11-29 23:11] VITALS: BP 152/90; PULSE 75; RESP 18; TEMP 97.4; O2SAT 97
--- NOTE | 2016-11-30 00:06 | C.PDOC ---
History Of Present Illness 51 year old male who presents to the ER with a complaint of right sided neck pain for the past 2 weeks that worsens when he turns his head to the right. Patient has been seen in the ER before for similar complaints. Patient state he does not want to take anymore pills since he takes enough pills already. Denies any trauma, weakness, or numbness. Time Seen by Provider: 11/29/16 23:30 Chief Complaint (Nursing): Upper Extremity Problem/Injury History Per: Patient History/Exam Limitations: no limitations Onset/Duration Of Symptoms: Days Current Symptoms Are (Timing): Still Present Exacerbating Factor(s): Movement Recent travel outside of the [place]: No Past Medical History Reviewed: Historical Data, Nursing Documentation, Vital Signs Vital Signs: Last Vital Signs Temp 97.4 F L 11/29/16 23:09 Pulse 75 11/29/16 23:09 Resp 18 11/29/16 23:09 BP 152/90 H 11/29/16 23:09 Pulse Ox 97 11/30/16 05:15 - Medical History PMH: COPD, HTN, Seizures Surgical History: No Surg Hx Family History: States: Unknown Family Hx - Social History Hx Alcohol Use: Yes Hx Substance Use: No - Immunization History Hx Tetanus Toxoid Vaccination: No Hx Influenza Vaccination: No Hx Pneumococcal Vaccination: No Review Of Systems Musculoskeletal: Positive for: Neck Pain Neurological: Negative for: Weakness, Numbness Physical Exam - Physical Exam Appears: Non-toxic Skin: Normal Color, Warm, Dry Head: Atraumatic, Normacephalic Oral Mucosa: Moist Neck: Normal, Normal ROM (Normal motor and sensation), No Midline Cervical Tenderness, Paracervical Tenderness (Right sided), No Step Off Deformity, Other (Right sided trapezius tenderness. ) Back: Normal Inspection, No CVA Tenderness, No Vertebral Tenderness, No Paraspinal Tenderness Neurological/Psych: Oriented x3, Normal Speech, Normal Cognition ED Course And Treatment O2 Sat by Pulse Oximetry: 97 (Room air) Pulse Ox Interpretation: Normal Medical Decision Making Medical Decision Making: pt with 2 weeks of right neck pain, no numbness, tingling or weakness. pt with tenderness to right paracervical and right trapezius. pt reprts he was seen by pmd, also seen in ed 1 week ago for same. pt declines any pain medication. sts he takes too many pills. will give lidoderm patch. Disposition - Disposition Disposition: ELOPEMENT - ER ONLY Disposition Time: 01:00 Condition: STABLE Forms: [facility] (Latvian) - Clinical Impression Clinical Impression: Trapezius muscle spasm - Scribe Statement The provider has reviewed the documentation as recorded by the Scribe Quang Beltran All medical record entries made by the Scribe were at my direction and personally dictated by me. I have reviewed the chart and agree that the record accurately reflects my personal performance of the history, physical exam, medical decision making, and the department course for this patient. I have also personally directed, reviewed, and agree with the discharge instructions and disposition.
[2016-11-30] MEDS ORDERED: Lidocaine 5% Patch TD ONE (00:36)
[2016-11-30] MEDS ORDERED: Lidocaine 5% Patch TD SCH (10:00)
== END 2016-11-30 01:06 | disposition left against medical advice (07) ==
LOC: C.ER 22:30
DX: M54.2 Cervicalgia (principal)

== ENCOUNTER 2017-06-01 18:28 | Emergency (ER) | payer OTHER ==
--- NOTE | 2017-06-01 21:18 | C.PDOC ---
History Of Present Illness 52 year old male presents to the ED for evaluation of alcohol intoxication/ withdrawal. He states that his last drink was at 17:00 today. States that he had a " few beers". Denies any prescription drug use nor any acute complaints. He states that he has a family member whom he may contact to assume his personal custody. He is undecided at this point. He does not express any desire for detox at this time. Chief Complaint (Nursing): Substance Abuse History Per: Patient History/Exam Limitations: intoxication Onset/Duration Of Symptoms: Unknown Modifying Factor(s): Alcohol Involuntary Hold By: None Past Medical History Reviewed: Historical Data, Nursing Documentation, Vital Signs Vital Signs: Last Vital Signs Temp 97.5 F L 06/02/17 00:45 Pulse 64 06/02/17 00:45 Resp 18 06/02/17 00:45 BP 168/97 H 06/02/17 00:45 Pulse Ox 100 06/02/17 00:45 - Medical History PMH: COPD, HTN, Seizures Denies: Chronic Kidney Disease Family History: States: Unknown Family Hx - Social History Hx Alcohol Use: Yes Hx Substance Use: No - Immunization History Hx Tetanus Toxoid Vaccination: No Hx Influenza Vaccination: No Hx Pneumococcal Vaccination: No Review Of Systems Except As Marked, All Systems Reviewed And Found Negative. Constitutional: Negative for: Fever, Chills ENT: Negative for: Ear Pain, Throat Pain Cardiovascular: Negative for: Chest Pain Respiratory: Negative for: Cough, Shortness of Breath Gastrointestinal: Negative for: Nausea, Vomiting, Abdominal Pain, Diarrhea Skin: Negative for: Rash Neurological: Negative for: Headache Psych: Positive for: Other (Alcohol abuse ). Negative for: Suicidal ideation Physical Exam - Physical Exam Appears: Other (Patient appears intoxicated) Skin: Normal Color, Warm, Dry Head: Atraumatic, Normacephalic Eye(s): bilateral: Normal Inspection, PERRL, EOMI Nose: Normal Oral Mucosa: Dry Throat: Normal Neck: Normal, Normal ROM, Supple Cardiovascular: Rhythm Regular Respiratory: Normal Breath Sounds Gastrointestinal/Abdominal: Normal Exam, Soft, No Tenderness Back: Normal Inspection Extremity: Normal ROM, No Deformity Extremity: Bilateral: Atraumatic Neurological/Psych: Oriented x3 ED Course And Treatment O2 Sat by Pulse Oximetry: 98 Medical Decision Making Medical Decision Making: Patient getting up and creating multiple disturbances. Apparently no longer under the influence of alcohol and is clinically sober. Will be releasing him on his own recognizance. Disposition - Disposition Referrals: [facility] [Outside] Disposition: HOME/ ROUTINE Disposition Time: 03:23 Condition: GOOD Instructions: Alcohol Use - When Is Drinking a Problem? Forms: [facility] (Yakut) Print Language: TAJIK - Clinical Impression Clinical Impression: Alcohol dependence - Scribe Statement The provider has reviewed the documentation as recorded by the Scribe The provider has reviewed the documentation as recorded by the Scribe (Baron Fisher) Provider Attestation: All medical record entries made by the Scribe were at my direction and personally dictated by me. I have reviewed the chart and agree that the record accurately reflects my personal performance of the history, physical exam, medical decision making, and the department course for this patient. I have also personally directed, reviewed, and agree with the discharge instructions and disposition.
[2017-06-02 00:55] VITALS: BP 168/97; PULSE 64; RESP 18; TEMP 97.5
[2017-06-02 03:24] VITALS: O2SAT 98
== END 2017-06-02 00:59 | disposition home or self-care (01) ==
LOC: C.ER 18:28
DX: F10.20 Alcohol dependence, uncomplicated (principal); Y90.9 Presence of alcohol in blood, level not specified

== ENCOUNTER 2017-07-25 17:13 | Emergency (ER) | payer OTHER ==
[2017-07-25] MEDS ORDERED: Enalaprilat 2.5 MG/2 ML IV ONE (17:38)
[2017-07-25] MEDS ORDERED: Enalaprilat 2.5 MG/2 ML ONE (17:48)
[2017-07-25 17:55] LABS: BASO % 0.4 % (0.0-2.0); EOS % 0.6 % (0.0-4.0); HEMOGLOBIN 14.6 g/dL (12.0-18.0); LYMPH # 3.2 K/uL (1.0-4.3); MEAN CELL VOLUME 96.3 fL (80.0-94.0); MEAN CORPUSCULAR HEMOGLOBIN 33.1 pg (27.0-31.0); MEAN CORPUSCULAR HGB CONC 34.4 g/dL (33.0-37.0); MEAN PLATELET VOLUME 8.5 fL (7.2-11.7); MONO # 0.9 K/uL (0.0-0.8); NEUT # 3.5 K/uL (1.8-7.0); NRBC % 0.1 % (0.0-2.0); RBC 4.41 Mil/uL (4.40-5.90); RED CELL DISTRIBUTION WIDTH 14.9 % (11.5-14.5); WHITE BLOOD COUNT 7.7 K/uL (4.8-10.8)
[2017-07-25 18:07] LABS: ALB/GLOB RATIO 1.3 (1.0-2.1); ALBUMIN 4.5 g/dL (3.5-5.0); ALT/SGPT 11 U/L (21-72); AST/SGOT 32 U/L (17-59); BLOOD UREA NITROGEN 12 mg/dL (9-20); CALCIUM 8.9 mg/dl (8.6-10.4); GFR AFRICAN-AMERICAN > 60; GFR NON-AFRICAN AMERICAN > 60
[2017-07-25] MEDS ORDERED: Magnesium Sulfate 1 gm in D5W 1 GM/100 ML BAG IVPB ONE ×2 (18:16→18:43)
[2017-07-25 19:31] VITALS: BP 148/100; PULSE 84; RESP 12; O2SAT 98
[2017-07-25 19:38] LABS: URINE BILIRUBIN NEGATIVE (NEGATIVE); URINE CLARITY Clear (Clear); URINE COLOR Yellow (YELLOW); URINE GLUCOSE (UA) NORMAL (Normal); URINE LEUKOCYTE ESTERASE NEG Leu/uL (Negative); URINE PROTEIN NEGATIVE (NEGATIVE)
[2017-07-25 19:41] LABS: URINE BLOOD TRACE (NEGATIVE)
[2017-07-25 20:00] LABS: BARBITURATES, UR NEGATIVE (NEGATIVE); BENZODIAZEPINES, UR NEGATIVE (NEGATIVE); OPIATES, UR NEGATIVE (NEGATIVE); PHENCYCLIDINE, UR NEGATIVE (NEGATIVE)
--- NOTE | 2017-07-25 20:07 | C.PDOC ---
Time Seen by Provider: 07/25/17 17:28 Chief Complaint (Nursing): Headache History Per: Patient Onset/Duration Of Symptoms: Days (1), Gradual Current Symptoms Are (Timing): Still Present Severity: Moderate Quality: "Pain" Associated Symptoms: denies: Photophobia, Blurred Vision, Nausea, Vomiting, Extremity Weakness Additional History Per: Prior Records Past Medical History Reviewed: Historical Data, Nursing Documentation, Vital Signs Vital Signs: Last Vital Signs Temp 98 F 07/25/17 17:21 Pulse 84 07/25/17 19:30 Resp 12 07/25/17 19:30 BP 148/100 H 07/25/17 19:30 Pulse Ox 98 07/25/17 19:30 - Medical History PMH: COPD, CVA, HTN, Seizures Family History: States: Unknown Family Hx - Social History Hx Tobacco Use: Yes Hx Alcohol Use: Yes Hx Substance Use: No - Immunization History Hx Tetanus Toxoid Vaccination: No Hx Influenza Vaccination: No Hx Pneumococcal Vaccination: No Review Of Systems Except As Marked, All Systems Reviewed And Found Negative. Constitutional: Negative for: Fever ENT: Negative for: Throat Pain Cardiovascular: Negative for: Chest Pain Respiratory: Negative for: Shortness of Breath Gastrointestinal: Negative for: Vomiting, Abdominal Pain Musculoskeletal: Negative for: Neck Pain, Back Pain Skin: Negative for: Rash Neurological: Positive for: Headache. Negative for: Weakness, Numbness, Seizures, Altered Mental Status Physical Exam - Physical Exam Appears: Non-toxic, No Acute Distress, Other (AOB) Skin: Normal Color, Warm, Dry Head: Atraumatic, Normacephalic Eye(s): bilateral: PERRL, EOMI Neck: Normal ROM, Supple Cardiovascular: Rhythm Regular Respiratory: Normal Breath Sounds, No Accessory Muscle Use Gastrointestinal/Abdominal: Soft, No Tenderness Extremity: Normal ROM Neurological/Psych: Oriented x3, Normal Motor, Normal Sensation ED Course And Treatment - Laboratory Results Result Diagrams: 07/25/17 17:51 07/25/17 17:51 O2 Sat by Pulse Oximetry: 98 Pulse Ox Interpretation: Normal - CT Scan/US CT head Other Rad Studies (CT/US): Read By Radiologist, Radiology Report Reviewed CT/US Interpretation: No acute findings. Chronic infarcts. Sinusitis. Progress Note: Pt feels better. Headache resolved. Pt's family is here and will take hime home. Reassessment Condition: Improved Progress - Interventions Interventions:: Observation - Medications Administered Intravenous: Antihypertensive, Other (Mg) - Data Reviewed Data Reviewed: Lab, Diagnostic imaging, Old records - Patient Status Patient status: Mostly improved - Continuity of Care Discussed patient case with:: Patient, Family-HIPPA compliant, ED Nurse - Patient Plan Patient Plan: Discharge, F/U with PCP, Continue present meds Disposition Counseled Patient/Family Regarding: Studies Performed, Diagnosis, Need For Followup, Rx Given, Smoking Cessation - Disposition Disposition: HOME/ ROUTINE Disposition Time: 20:08 Condition: IMPROVED Additional Instructions: Take your medications as prescribed. Follow up with your doctor for further evaluation and treatment. Return to the ER if you develop weakness, numbness, vomiting, worsening of symptoms or if you have any other concerns. Prescriptions: Amoxicillin/Clavulanate [Augmentin 875 MG-125 MG] 1 tab PO BID #14 tab Fluticasone Nasal [Flonase] 2 spr NS DAILY #1 bottle Instructions: Sinusitis, Adult (DC) Forms: [email or web address] (Chinese) - Clinical Impression Clinical Impression: Headache, Sinusitis, Alcohol intoxication
[2017-07-25 20:20] VITALS: TEMP 97.9
--- NOTE | 2017-07-26 08:24 | CT ---
PROCEDURE: CT HEAD WITHOUT CONTRAST. HISTORY: Headache, HTN, ETOH COMPARISON: Comparison is made to 11/13/2016 TECHNIQUE: Axial computed tomography images were obtained through the head/brain without intravenous contrast. Radiation dose: Total exam DLP = 824.27 mGy-cm. This CT exam was performed using one or more of the following dose reduction techniques: Automated exposure control, adjustment of the mA and/or kV according to patient size, and/or use of iterative reconstruction technique. FINDINGS: HEMORRHAGE: No intracranial hemorrhage. BRAIN: Focal encephalomalacia at the left frontal lobe is again noted. Bilateral basal ganglia chronic lacunar infarction are also again seen. Mild atrophy and moderate chronic microvascular white matter ischemic disease are noted. VENTRICLES: Unremarkable. No hydrocephalus. CALVARIUM: Unremarkable. PARANASAL SINUSES: Mucosal thickening and almost complete opacification of the maxillary and right sphenoid sinus as well as right ethmoid sinuses is noted suggestive of sinusitis. MASTOID AIR CELLS: Unremarkable as visualized. No inflammatory changes. OTHER FINDINGS: Deformity of the right zygomatic arch suggestive of old fracture. IMPRESSION: No evidence of acute intracranial hemorrhage intracranial collection mass effect or midline shift. No significant interval change in the brain parenchyma noted since the previous exam. Sinuses mucosal disease suggestive of sinusitis. Preliminary report was submitted by [facility].
== END 2017-07-25 20:23 | disposition home or self-care (01) ==
LOC: C.ER 17:13
DX: R51 Headache (principal); J32.9 Chronic sinusitis, unspecified; F10.129 Alcohol abuse with intoxication, unspecified; Y90.8 Blood alcohol level of 240 mg/100 ml or more; I10 Essential (primary) hypertension; F17.210 Nicotine dependence, cigarettes, uncomplicated
CPT/HCPCS: 70450; 80053; 80320; 80324; 80345; 80346; 80349; 80353; 80358; 80361; 81001; 83735; 83992; 85025; 96365; 99285; J3475

== ENCOUNTER 2017-09-21 01:39 | Emergency (ER) | payer OTHER ==
[2017-09-21 01:50] VITALS: RESP 20; TEMP 97.8; O2SAT 100
--- NOTE | 2017-09-21 02:08 | C.PDOC ---
History Of Present Illness 52 year old male with a PMHx of HTN presents to the ER stating he has not taken his blood pressure medications in 2 days and feels like it might be elevated. Otherwise, patient feels well and has no complaints. Denies chest pain, SOB, headache, vision change, weakness, or numbness. Time Seen by Provider: 09/21/17 01:50 Chief Complaint (Nursing): High Blood Pressure History Per: Patient History/Exam Limitations: no limitations Onset/Duration Of Symptoms: Days Current Symptoms Are (Timing): Still Present Associated Symptoms: denies: Chest Pain, Dyspnea, Dizziness, Blurred Vision, Focal Weakness, Headache Quality Of Symptoms: Asymptomatic Exacerbating Factor(s): Pos: None Recent travel outside of the [place]: No Past Medical History Reviewed: Historical Data, Nursing Documentation, Vital Signs Vital Signs: Last Vital Signs Temp 97.8 F 09/21/17 01:48 Pulse 78 09/21/17 02:00 Resp 20 09/21/17 01:48 BP 164/104 H 09/21/17 03:14 Pulse Ox 100 09/21/17 03:31 - Medical History PMH: COPD, CVA, HTN, Seizures Family History: States: Unknown Family Hx - Social History Hx Tobacco Use: Yes Hx Alcohol Use: Yes Hx Substance Use: No - Immunization History Hx Tetanus Toxoid Vaccination: No Hx Influenza Vaccination: No Hx Pneumococcal Vaccination: No Review Of Systems Constitutional: Negative for: Fever, Chills Eyes: Negative for: Vision Change Cardiovascular: Negative for: Chest Pain, Palpitations Respiratory: Negative for: Cough, Shortness of Breath Gastrointestinal: Negative for: Nausea, Vomiting Neurological: Negative for: Weakness, Numbness, Headache Physical Exam - Physical Exam Appears: Non-toxic, No Acute Distress Skin: Normal Color, Warm, Dry Head: Atraumatic, Normacephalic Eye(s): bilateral: Normal Inspection Oral Mucosa: Moist Neck: Normal, Supple Chest: Symmetrical, No Tenderness Cardiovascular: Rhythm Regular Respiratory: Normal Breath Sounds, No Rales, No Rhonchi, No Wheezing Gastrointestinal/Abdominal: Soft, No Tenderness Extremity: Normal ROM (x4) Neurological/Psych: Oriented x3, Normal Speech ED Course And Treatment O2 Sat by Pulse Oximetry: 100 (Room air) Pulse Ox Interpretation: Normal Medical Decision Making Medical Decision Making: Coreg, norvasc, and vasotec administered. On first re-exam, the patient remains asymptomatic but BP remains high. Clonidine 0.1mg PO. On reevaluation, patient is resting comfortably in the ER in no acute distress, repeat blood pressure shows improvement, will discharge home with Rx and instructions to follow up with PMD or return if symptoms worsen. Disposition Counseled Patient/Family Regarding: Need For Followup (Patient states that he has all his medications at home and will take them.) - Disposition Referrals: [facility] [Outside] Disposition: HOME/ ROUTINE Disposition Time: 03:18 Condition: GOOD Additional Instructions: Follow up with the medical doctor within 1-2 days for BP recheck. Return if worsened. Instructions: High Blood Pressure (DC) Forms: [employer] (Telugu) - Clinical Impression Clinical Impression: Hypertension - PA / ARCHAEOLOGIST / Resident Statement MD/DO has reviewed & agrees with the documentation as recorded. - Scribe Statement The provider has reviewed the documentation as recorded by the Scribe Quang Beltran All medical record entries made by the Scribe were at my direction and personally dictated by me. I have reviewed the chart and agree that the record accurately reflects my personal performance of the history, physical exam, medical decision making, and the department course for this patient. I have also personally directed, reviewed, and agree with the discharge instructions and disposition.
[2017-09-21 03:16] VITALS: PULSE 78
[2017-09-21 04:15] VITALS: BP 156/96
== END 2017-09-21 04:21 | disposition home or self-care (01) ==
LOC: C.ER 01:39
DX: I10 Essential (primary) hypertension (principal); Z86.73 Personal history of transient ischemic attack (TIA), and cerebral infarction without residual deficits; F17.210 Nicotine dependence, cigarettes, uncomplicated

== ENCOUNTER 2017-10-13 16:38 | Emergency (ER) | payer OTHER ==
[2017-10-13 16:44] VITALS: BP 130/88; PULSE 72; RESP 18; TEMP 98; O2SAT 100
[2017-10-13] MEDS ORDERED: Sodium Chloride 0.9% 1,000 ML IV STA ×2 (16:56→20:20)
[2017-10-13 18:04] LABS: ALB/GLOB RATIO 1.4 (1.0-2.1); ALBUMIN 4.5 g/dL (3.5-5.0); ALT/SGPT 26 U/L (21-72); AST/SGOT 28 U/L (17-59); BLOOD UREA NITROGEN 14 mg/dL (9-20); CALCIUM 8.9 mg/dl (8.6-10.4); GFR AFRICAN-AMERICAN > 60; GFR NON-AFRICAN AMERICAN > 60
[2017-10-13 18:26] LABS: BASO # 0.1 K/uL (0.0-0.2); BASO % 0.6 % (0.0-2.0); EOS # 0.1 K/uL (0.0-0.7); EOS % 0.6 % (0.0-4.0); HEMOGLOBIN 13.8 g/dL (12.0-18.0); LYMPH % 33.9 % (20.0-40.0); MEAN CELL VOLUME 99.2 fL (80.0-94.0); MEAN CORPUSCULAR HEMOGLOBIN 33.1 pg (27.0-31.0); MEAN CORPUSCULAR HGB CONC 33.4 g/dL (33.0-37.0); MEAN PLATELET VOLUME 8.6 fL (7.2-11.7); MONO # 1.1 K/uL (0.0-0.8); MONO % 11.8 % (0.0-10.0); NEUT # 4.7 K/uL (1.8-7.0); NEUT % 53.1 % (50.0-75.0); NRBC % 0.1 % (0.0-2.0); RBC 4.16 Mil/uL (4.40-5.90); RED CELL DISTRIBUTION WIDTH 13.3 % (11.5-14.5); WHITE BLOOD COUNT 8.9 K/uL (4.8-10.8)
[2017-10-13 18:40] LABS: PARTIAL THROMBOPLASTIN TIME 30 SECONDS (21-34)
[2017-10-13 18:41] LABS: D DIMER < 200 ng/mlDDU (0-243)
[2017-10-13] MEDS ORDERED: Clindamycin 300 MG in Sodium Chloride 0.9% 50 ML IVPB STA (19:47)
[2017-10-13] MEDS ORDERED: Clindamycin 600mg/50ml NS 600 MG/50 ML BAG IVPB ONE (19:57)
--- NOTE | 2017-10-13 21:28 | C.PDOC ---
History Of Present Illness 52 year old male presents to the for evaluation of pain and redness to his right lower extremity which began two days ago. Patient denies fever, chills, extremity numbness/weakness or trauma/injury to the site. Time Seen by Provider: 10/13/17 16:56 Chief Complaint (Nursing): Abnormal Skin Integrity History Per: Patient History/Exam Limitations: no limitations Onset/Duration Of Symptoms: Days (2) Current Symptoms Are (Timing): Still Present Additional History Per: Patient Past Medical History Reviewed: Historical Data, Nursing Documentation, Vital Signs Vital Signs: Last Vital Signs Temp 98.0 F 10/13/17 16:44 Pulse 72 10/13/17 16:44 Resp 18 10/13/17 16:44 BP 130/88 10/13/17 16:44 Pulse Ox 100 10/13/17 21:50 - Medical History PMH: COPD, CVA, HTN, Seizures Denies: Chronic Kidney Disease Surgical History: No Surg Hx Family History: States: Unknown Family Hx - Social History Hx Tobacco Use: Yes Hx Alcohol Use: Yes Hx Substance Use: No - Immunization History Hx Tetanus Toxoid Vaccination: No Hx Influenza Vaccination: No Hx Pneumococcal Vaccination: No Review Of Systems Constitutional: Negative for: Fever, Chills Skin: Positive for: Other (pain and redness to right lower extremity ) Neurological: Negative for: Weakness, Numbness Physical Exam - Physical Exam Appears: Non-toxic, No Acute Distress Skin: Warm, Dry, Other (erythema and warmth to right lower extremity, mostly anterior lawrence area, no open sores) Head: Atraumatic, Normacephalic Eye(s): bilateral: Normal Inspection Oral Mucosa: Moist Neck: Supple Chest: Symmetrical, No Deformity, No Tenderness Cardiovascular: Rhythm Regular Respiratory: Normal Breath Sounds Extremity: Normal ROM, No Tenderness, Capillary Refill (less than 2 seconds ), No Deformity, Swelling (to right lower extremity, mostly around right ankle ) Pulses: Left Dorsalis Pedis: Normal, Right Dorsalis Pedis: Normal Neurological/Psych: Oriented x3, Normal Speech, Normal Cognition, Normal Sensation Gait: Steady ED Course And Treatment - Laboratory Results Result Diagrams: 10/13/17 18:20 10/13/17 17:43 O2 Sat by Pulse Oximetry: 100 (on RA) Pulse Ox Interpretation: Normal Progress Note: Bloodwork ordered. Clindamycin IVP and two liters of IV Fluids administered. White Blood Cell count is within normal limits. On re-exam, patient is resting comfortably, showing no signs of distress and is stable for discharge. Patient is advised to follow up with his PMD within 1-2 days for further evaluation and/or return to the ED if symptoms persist or worsen. Disposition - Disposition Referrals: [facility] at [facility] [Outside] Disposition: HOME/ ROUTINE Disposition Time: 21:26 Condition: STABLE Additional Instructions: Follow up with PMD/Clinic within 1-2 days. Return to ED immediately if feel worse. Prescriptions: Mupirocin 2% Ointment [Bactroban Ointment] 1 appl TP BID #1 tube Clindamycin [Cleocin] 300 mg PO Q6 #40 cap Instructions: Cellulitis (Skin Infection), Adult (DC) Forms: [employer] ([place] Islander) - Clinical Impression Clinical Impression: Cellulitis, leg - PA / CHIP LOFT WORKER / Resident Statement MD/DO has reviewed & agrees with the documentation as recorded. - Scribe Statement The provider has reviewed the documentation as recorded by the Scribe (Radha Real) All medical record entries made by the Scribe were at my direction and personally dictated by me. I have reviewed the chart and agree that the record accurately reflects my personal performance of the history, physical exam, medical decision making, and the department course for this patient. I have also personally directed, reviewed, and agree with the discharge instructions and disposition.
== END 2017-10-13 21:59 | disposition home or self-care (01) ==
LOC: C.ER 16:38
DX: L03.115 Cellulitis of right lower limb (principal)
CPT/HCPCS: 80053; 85025; 85378; 85610; 85730; 96361; 96365; 99285; J7030

== ENCOUNTER 2017-12-12 16:52 | Emergency (ER) | payer OTHER ==
--- NOTE | 2017-12-12 17:13 | C.PDOC ---
History Of Present Illness 52 y/o male, with PMHx of seizure disorder, alcohol abuse, presents to ED c/o seizure 2 days ago. Denies alcohol abuse. He admits to not being compliant with his Keppra. Pt has been seen here numerous times previously. As per triage, relative called for ambulance. However, upon evaluation pt states he called the ambulance. Denies fever, or other complaints. Time Seen by Provider: 12/12/17 16:58 Chief Complaint (Nursing): Seizure History Per: Patient History/Exam Limitations: no limitations Past Medical History Reviewed: Historical Data, Nursing Documentation, Vital Signs Vital Signs: Last Vital Signs Temp 99.4 F 12/12/17 20:03 Pulse 83 12/12/17 20:03 Resp 18 12/12/17 20:03 BP 177/105 H 12/12/17 20:03 Pulse Ox 97 12/12/17 20:03 - Medical History PMH: COPD, CVA, HTN, Seizures Denies: Chronic Kidney Disease Family History: States: Unknown Family Hx - Social History Hx Tobacco Use: Yes Hx Alcohol Use: Yes Hx Substance Use: No - Immunization History Hx Tetanus Toxoid Vaccination: No Hx Influenza Vaccination: No Hx Pneumococcal Vaccination: No Review Of Systems Except As Marked, All Systems Reviewed And Found Negative. Constitutional: Negative for: Fever, Chills Cardiovascular: Negative for: Chest Pain Respiratory: Negative for: Shortness of Breath Neurological: Positive for: Seizures Physical Exam - Physical Exam Appears: Non-toxic, No Acute Distress Skin: Normal Color, Warm, Dry Head: Atraumatic, Normacephalic Eye(s): bilateral: Normal Inspection Oral Mucosa: Moist Tongue: Normal Appearing, No Lesions Lips: Normal Appearing, No Lesions Neck: Supple Cardiovascular: Rhythm Regular Respiratory: Normal Breath Sounds, No Rales, No Rhonchi, No Wheezing Gastrointestinal/Abdominal: Soft, No Tenderness Extremity: Normal ROM, No Other (no tremors noted) Neurological/Psych: Oriented x3, Normal Speech ED Course And Treatment - Laboratory Results Result Diagrams: 12/12/17 18:08 12/12/17 18:08 O2 Sat by Pulse Oximetry: 98 (ON RA) Pulse Ox Interpretation: Normal - CT Scan/US CT head Other Rad Studies (CT/US): Read By Radiologist, Radiology Report Reviewed CT/US Interpretation: EXAM: CT Head Without Intravenous Contrast. EXAM DATE/ TIME: 12/12/2017 5:10 PM. CLINICAL HISTORY: 52 years old, male; Seizure. TECHNIQUE: Axial computed tomography images of the head/brain without intravenous contrast. All CT scans at this facility use at least one of these dose optimization techniques: automated. exposure control; mA and/or kV adjustment per patient size (includes targeted exams where dose is. matched to clinical indication); or iterative reconstruction. Coronal and sagittal reformatted images were created and reviewed. COMPARISON: Report from the prior head CT scan dated 10/25/16. The images are not available for review. FINDINGS: Brain: Moderate to large cystic encephalomalacia in the left frontal lobe. Hypoattenuation in the. right basal ganglia and deep white matter adjacent to the right lateral ventricle. No acute infarct,. parenchymal hemorrhage, edema, midline shift or extra-axial collection. The brainstem and. cerebellum are unremarkable. Ventricles: Asymmetrical dilatation of the right lateral ventricle and left frontal horn. No. hydrocephalus. Bones/joints: Deformity of the right zygomatic arch. No skull fracture. Sinuses: Small mucosal thickening of both ethmoid air cells and maxillary sinuses. Mastoid air cells: The mastoid air cells are clear without air-fluid levels. Soft tissues: Normal. Vasculature: Small calcification of the left vertebral artery. The prior report describes similar findings in the brain and right zygomatic arch. IMPRESSION: [facility] | Preliminary Radiology Report. CONFIDENTIALITY STATEMENT. This report is intended only for the use of the referring physician, and only in accordance with law, If you received this in error, call [phone]. Page 2 of 2. 1. 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 old trauma. No acute infarct or hemorrhage. 2. Old healed fracture of the right zygomatic arch. 3. Chronic ethmoid and maxillary sinusitis. Thank you for allowing us to participate in the care of your patient. Dictated and Authenticated by: Titi Tapia MD. 12/12/2017 7:20 PM Eastern Time ([place] & [place]) Medical Decision Making Medical Decision Making: pt h/ of seizures, non compliant with meds. seen previously with simialr. does not want detox. pt sleepign on initial eam. last reported seizure 2 days ago. no tremors tachycardia. acute etoh w/d unlikely. Plan: Blood work Urinalysis Head CT EKG pt reassesed sleeping through ed stay. offered pt detox. he declines. pt also reports he has seizure meds at home, but "doesnot want to takethem". i encouraged pt to take his meds advise outpt fu. return rpecautions. clincally sober. neuro intact. oriented x 3. no si hi. Disposition - Disposition Referrals: [facility] [Outside] [facility] [Outside] Michael Crooks MD [Staff Provider] - Disposition: HOME/ ROUTINE Disposition Time: 07:00 Condition: STABLE Additional Instructions: please follow up with your doctor/clinic and specialist. return to er with worsening symptoms or concerns. Instructions: Seizures, Adult (DC) Forms: [employer] (Estonian) - Clinical Impression Clinical Impression: Seizure - Scribe Statement The provider has reviewed the documentation as recorded by the Scribe KP All medical record entries made by the Scribe were at my direction and personally dictated by me. I have reviewed the chart and agree that the record accurately reflects my personal performance of the history, physical exam, medical decision making, and the department course for this patient. I have also personally directed, reviewed, and agree with the discharge instructions and disposition.
[2017-12-12 18:11] LABS: BASO % 0.7 % (0.0-2.0); EOS % 0.7 % (0.0-4.0); HEMOGLOBIN 13.3 g/dL (12.0-18.0); LYMPH # 2.1 K/uL (1.0-4.3); LYMPH % 35.8 % (20.0-40.0); MEAN CELL VOLUME 97.4 fL (80.0-94.0); MEAN CORPUSCULAR HEMOGLOBIN 33.4 pg (27.0-31.0); MEAN CORPUSCULAR HGB CONC 34.3 g/dL (33.0-37.0); MEAN PLATELET VOLUME 8.4 fL (7.2-11.7); MONO # 0.7 K/uL (0.0-0.8); MONO % 12.6 % (0.0-10.0); NEUT % 50.2 % (50.0-75.0); NRBC % 0.2 % (0.0-2.0); RBC 3.97 Mil/uL (4.40-5.90); WHITE BLOOD COUNT 5.9 K/uL (4.8-10.8)
[2017-12-12 18:27] LABS: ALB/GLOB RATIO 1.5 (1.0-2.1); ALBUMIN 4.3 g/dL (3.5-5.0); ALT/SGPT 24 U/L (21-72); AST/SGOT 28 U/L (17-59); BLOOD UREA NITROGEN 14 mg/dL (9-20); CALCIUM 9.3 mg/dl (8.6-10.4); GFR NON-AFRICAN AMERICAN > 60
[2017-12-12 18:45] VITALS: RESP 18
[2017-12-12 19:27] LABS: SQUAMOUS EPITHIAL < 1 /hpf (0-5); URINE BACTERIA OCC (<OCC); URINE BILIRUBIN NEGATIVE (NEGATIVE); URINE BLOOD NEGATIVE (NEGATIVE); URINE CLARITY Clear (Clear); URINE COLOR Yellow (YELLOW); URINE GLUCOSE (UA) NORMAL (Normal); URINE LEUKOCYTE ESTERASE NEG Leu/uL (Negative); URINE PROTEIN NEGATIVE (NEGATIVE)
[2017-12-12 19:38] LABS: BARBITURATES, UR NEGATIVE (NEGATIVE); BENZODIAZEPINES, UR NEGATIVE (NEGATIVE); OPIATES, UR NEGATIVE (NEGATIVE); PHENCYCLIDINE, UR NEGATIVE (NEGATIVE)
[2017-12-12 20:04] VITALS: BP 177/105; PULSE 83; TEMP 99.4
[2017-12-12 23:14] VITALS: O2SAT 98
--- NOTE | 2017-12-13 11:04 | CT ---
Date of service: 12/12/2017 PROCEDURE: CT HEAD WITHOUT CONTRAST. HISTORY: seizure COMPARISON: Comparison made with prior CT scan brain 07/25/2017. TECHNIQUE: Axial computed tomography images were obtained through the head/brain without intravenous contrast. Radiation dose: Total exam DLP = 845.31 mGy-cm. This CT exam was performed using one or more of the following dose reduction techniques: Automated exposure control, adjustment of the mA and/or kV according to patient size, and/or use of iterative reconstruction technique. . FINDINGS: HEMORRHAGE: No acute parenchymal, subarachnoid or extra-axial hemorrhage. BRAIN: Re- demonstrated are localized partially cystic encephalomalacia changes in the in the left inferior frontal lobe and possibly anterior inferior temporal tip. There is also encephalomalacia in the deep right frontal white matter adjacent to the frontal horn with thumb encephalomalacia changes right caudate head and anterior limb right internal capsule. Persistent slight localized ex vacuo dilatation of the right frontal horn as a result unchanged. No obvious parenchymal nor extra-axial masses identified on this noncontrast study. Mild to moderate generalized volume loss. VENTRICLES: As above. No obstructive hydrocephalus. CALVARIUM: Calvarium intact PARANASAL SINUSES: Unremarkable as visualized. No significant inflammatory changes. MASTOID AIR CELLS: Unremarkable as visualized. No inflammatory changes. OTHER FINDINGS: None. IMPRESSION: Re- demonstrated are localized partially cystic encephalomalacia changes in the in the left inferior frontal lobe and possibly anterior inferior temporal tip. There is also encephalomalacia in the deep right frontal white matter adjacent to the frontal horn with thumb encephalomalacia changes right caudate head and anterior limb right internal capsule. Persistent slight localized ex vacuo dilatation of the right frontal horn as a result unchanged. No obvious parenchymal nor extra-axial masses identified on this noncontrast study. Mild to moderate generalized volume loss.
== END 2017-12-12 20:10 | disposition home or self-care (01) ==
LOC: C.ER 16:52
DX: G40.909 Epilepsy, unspecified, not intractable, without status epilepticus (principal)

== ENCOUNTER 2017-12-13 02:26 | Emergency (ER) | payer OTHER ==
[2017-12-13 02:38] VITALS: BP 152/103; RESP 15; TEMP 98.6
--- NOTE | 2017-12-13 02:44 | C.PDOC ---
History Of Present Illness 52 year old male presents to the ED c/o back pain. On questioning patient then state he had been drinking tonight and is requesting alcohol detox. Patient denies SI/HI, hallucinations, injury, fall, trauma, weakness, numbness, bowel incontinence, saddle anesthesia. Chief Complaint (Nursing): Back Pain History Per: Patient History/Exam Limitations: intoxication Onset/Duration Of Symptoms: Hrs Current Symptoms Are (Timing): Still Present Quality Of Discomfort: "Pain" Previous Symptoms: None Associated Symptoms: None Recent travel outside of the [place]: No Additional History Per: Patient Past Medical History Reviewed: Historical Data, Nursing Documentation, Vital Signs Vital Signs: Last Vital Signs Temp 98.6 F 12/13/17 02:32 Pulse 81 12/13/17 02:32 Resp 15 12/13/17 02:32 BP 152/103 H 12/13/17 02:32 Pulse Ox 100 12/13/17 02:45 - Medical History PMH: COPD, CVA, HTN, Seizures Denies: Chronic Kidney Disease Surgical History: No Surg Hx Family History: States: Unknown Family Hx - Social History Hx Tobacco Use: Yes Hx Alcohol Use: Yes Hx Substance Use: No - Immunization History Hx Tetanus Toxoid Vaccination: No Hx Influenza Vaccination: No Hx Pneumococcal Vaccination: No Review Of Systems Constitutional: Negative for: Fever, Chills Cardiovascular: Negative for: Chest Pain Respiratory: Negative for: Shortness of Breath Gastrointestinal: Negative for: Nausea, Vomiting Genitourinary: Negative for: Incontinence Musculoskeletal: Positive for: Back Pain Skin: Negative for: Rash Psych: Negative for: Depression, Suicidal ideation Physical Exam - Physical Exam Appears: Non-toxic, No Acute Distress, Other (AOB) Skin: Normal Color, Warm, Dry Head: Atraumatic, Normacephalic Eye(s): bilateral: Normal Inspection Oral Mucosa: Moist Neck: Normal ROM, No Midline Cervical Tenderness, Supple Chest: Symmetrical Cardiovascular: Rhythm Regular Respiratory: Normal Breath Sounds, No Rales, No Rhonchi, No Wheezing Gastrointestinal/Abdominal: Soft, No Tenderness, No Guarding, No Rebound Back: No Vertebral Tenderness, No Paraspinal Tenderness Extremity: Normal ROM, No Tenderness, No Swelling Neurological/Psych: Oriented x3, Normal Speech Gait: Steady ED Course And Treatment O2 Sat by Pulse Oximetry: 100 (ON RA) Pulse Ox Interpretation: Normal Medical Decision Making Medical Decision Making: Plan: * Catapres 0.1 mg PO * Toradol 60 mg IM * Crisis was called and no detox beds are available at this time Disposition - Disposition Referrals: [facility] [Outside] Prescriptions: Naproxen 375 mg PO TIDPC #14 tablet Instructions: High Blood Pressure (DC), Low Back Pain (DC), Seizures, Adult ( DC), Alcohol Abuse and Alcoholism (DC) Forms: [employer] (Nigerian) - Clinical Impression Clinical Impression: Low back pain, Alcohol abuse, Seizure disorder - Scribe Statement The provider has reviewed the documentation as recorded by the Scribe Sundeep Cordova All medical record entries made by the Scribe were at my direction and personally dictated by me. I have reviewed the chart and agree that the record accurately reflects my personal performance of the history, physical exam, medical decision making, and the department course for this patient. I have also personally directed, reviewed, and agree with the discharge instructions and disposition.
--- NOTE | 2017-12-13 02:45 | C.PDOC ---
History Of Present Illness 52 year old male presents to the ED c/o back pain. On questioning patient then state he had been drinking tonight and is requesting alcohol detox. Patient denies SI/HI, hallucinations, injury, fall, trauma, weakness, numbness, bowel incontinence, saddle anesthesia. Chief Complaint (Nursing): Back Pain History Per: Patient History/Exam Limitations: intoxication Onset/Duration Of Symptoms: Hrs Current Symptoms Are (Timing): Still Present Quality Of Discomfort: "Pain" Previous Symptoms: None Associated Symptoms: None Exacerbating Factor(s): Nothing Recent travel outside of the [place]: No Additional History Per: Patient Past Medical History Reviewed: Historical Data, Nursing Documentation, Vital Signs Vital Signs: Last Vital Signs Temp 98.6 F 12/13/17 02:32 Pulse 78 12/13/17 03:11 Resp 15 12/13/17 02:32 BP 152/103 H 12/13/17 02:32 Pulse Ox 98 12/13/17 03:11 - Medical History PMH: COPD, CVA, HTN, Seizures Denies: Chronic Kidney Disease Surgical History: No Surg Hx Family History: States: Unknown Family Hx - Social History Hx Tobacco Use: Yes Hx Alcohol Use: Yes Hx Substance Use: No - Immunization History Hx Tetanus Toxoid Vaccination: No Hx Influenza Vaccination: No Hx Pneumococcal Vaccination: No Review Of Systems Constitutional: Negative for: Fever, Chills Cardiovascular: Negative for: Chest Pain Respiratory: Negative for: Shortness of Breath Gastrointestinal: Negative for: Abdominal Pain, Diarrhea Genitourinary: Negative for: Incontinence Musculoskeletal: Positive for: Back Pain Neurological: Negative for: Weakness, Numbness Psych: Negative for: Depression, Suicidal ideation Physical Exam - Physical Exam Appears: Non-toxic, No Acute Distress, Other (AOB) Skin: Normal Color, Warm, Dry Head: Atraumatic, Normacephalic Eye(s): bilateral: Normal Inspection Neck: Normal ROM, Supple Chest: Symmetrical Cardiovascular: Rhythm Regular Respiratory: Normal Breath Sounds, No Rales, No Rhonchi, No Wheezing Gastrointestinal/Abdominal: Soft, No Tenderness, No Guarding, No Rebound Back: No Vertebral Tenderness, No Paraspinal Tenderness Extremity: Normal ROM, No Tenderness, No Swelling Neurological/Psych: Oriented x3, Normal Speech, Normal Cognition Gait: Steady ED Course And Treatment O2 Sat by Pulse Oximetry: 100 (ON RA) Pulse Ox Interpretation: Normal Medical Decision Making Medical Decision Making: Plan: Catapres 0.1 mg PO Toradol 60 mg IM Crisis was called and no detox beds are available at this time Disposition Counseled Patient/Family Regarding: Diagnosis - Disposition Referrals: [facility] [Outside] Disposition: HOME/ ROUTINE Disposition Time: 03:10 Condition: STABLE Prescriptions: Naproxen 375 mg PO TIDPC #14 tablet Instructions: High Blood Pressure (DC), Low Back Pain (DC), Seizures, Adult ( DC), Alcohol Abuse and Alcoholism (DC) Forms: [employer] (Malawian) - POA Present On Arrival: None - Clinical Impression Clinical Impression: Low back pain, Alcohol abuse, Seizure disorder - Scribe Statement The provider has reviewed the documentation as recorded by the Scribe Sundeep Cordova All medical record entries made by the Scribe were at my direction and personally dictated by me. I have reviewed the chart and agree that the record accurately reflects my personal performance of the history, physical exam, medical decision making, and the department course for this patient. I have also personally directed, reviewed, and agree with the discharge instructions and disposition.
[2017-12-13 03:11] VITALS: PULSE 78
[2017-12-13 04:13] VITALS: O2SAT 100
== END 2017-12-13 03:11 | disposition home or self-care (01) ==
LOC: C.ER 02:26
DX: M54.5 Low back pain (principal); F10.10 Alcohol abuse, uncomplicated; G40.909 Epilepsy, unspecified, not intractable, without status epilepticus; I10 Essential (primary) hypertension; J44.9 Chronic obstructive pulmonary disease, unspecified; Z86.73 Personal history of transient ischemic attack (TIA), and cerebral infarction without residual deficits; Z72.0 Tobacco use
CPT/HCPCS: 96372; 99284; J1885

== ENCOUNTER 2017-12-25 16:10 | Emergency (ER) | payer OTHER ==
--- NOTE | 2017-12-25 17:51 | C.PDOC ---
History Of Present Illness <RaymundoAme - Last Filed: 12/25/17 19:00> <DanikaanyaAdelajoleen - Last Filed: 12/25/17 21:41> 52 y/o male presents to ED requesting alcohol detox. Pt is pre-screened. Otherwise, denies SI, HI, or any active physical complaints at this time. (Ame Fonseca) History Per: Patient History/Exam Limitations: no limitations Onset/Duration Of Symptoms: Gradual Current Symptoms Are (Timing): Still Present Suicide/Self Injury Attempted (Context): None Modifying Factor(s): Alcohol Severity: None Pain Scale Rating Of: 0 Associated Symptoms: denies: Suicidal Thoughts, Suicidal Plan Involuntary Hold By: None Recent travel outside of the [place]: No Additional History Per: Patient <RaymundoAme - Last Filed: 12/25/17 19:00> <RayrayAdelajoleen - Last Filed: 12/25/17 21:41> Time Seen by Provider: 12/25/17 17:20 Chief Complaint (Nursing): Substance Abuse Past Medical History Reviewed: Historical Data, Nursing Documentation, Vital Signs - Medical History PMH: COPD, CVA, HTN, Seizures Denies: Chronic Kidney Disease Family History: States: Unknown Family Hx - Social History Hx Tobacco Use: Yes Hx Alcohol Use: Yes Hx Substance Use: No - Immunization History Hx Tetanus Toxoid Vaccination: No Hx Influenza Vaccination: No Hx Pneumococcal Vaccination: No <Adela Fonsecaerie - Last Filed: 12/25/17 19:00> Vital Signs: Last Vital Signs Temp 97.9 F 12/25/17 18:56 Pulse 72 12/25/17 19:52 Resp 14 12/25/17 19:52 BP 150/92 H 12/25/17 19:52 Pulse Ox 97 12/25/17 19:52 Review Of Systems Except As Marked, All Systems Reviewed And Found Negative. Constitutional: Negative for: Fever, Chills Cardiovascular: Negative for: Chest Pain, Palpitations Respiratory: Negative for: Shortness of Breath Gastrointestinal: Negative for: Nausea, Vomiting, Abdominal Pain Neurological: Negative for: Headache, Dizziness Psych: Negative for: Suicidal ideation <Ame Fonseca - Last Filed: 12/25/17 19:00> Physical Exam - Physical Exam Appears: Non-toxic, No Acute Distress Skin: Normal Color, Warm, Dry Head: Atraumatic, Normacephalic Eye(s): bilateral: Normal Inspection Oral Mucosa: Moist Neck: Normal ROM, Supple Cardiovascular: Rhythm Regular Respiratory: Normal Breath Sounds, No Rales, No Rhonchi, No Wheezing Gastrointestinal/Abdominal: Soft, No Tenderness Extremity: Normal ROM Neurological/Psych: Oriented x3, Normal Speech <Ame Fonseca - Last Filed: 12/25/17 19:00> ED Course And Treatment - Laboratory Results Result Diagrams: 12/25/17 18:09 12/25/17 18:09 O2 Sat by Pulse Oximetry: 99 (RA) Pulse Ox Interpretation: Normal <Ame Fonseca - Last Filed: 12/25/17 19:00> - Laboratory Results Result Diagrams: 12/25/17 18:09 12/25/17 18:09 <Martha Seo - Last Filed: 12/25/17 21:41> Medical Decision Making <Ame Fonseca - Last Filed: 12/25/17 19:00> <Martha Seo - Last Filed: 12/25/17 21:41> Medical Decision Making: Plan: Blood work Urinalysis On re-eval, pt is resting comfortably, no complaints. (Ame Fonseca) Disposition - Disposition Disposition Time: 19:01 <Ame Fonseca - Last Filed: 12/25/17 19:00> Counseled Patient/Family Regarding: Studies Performed, Diagnosis, Need For Followup, Smoking Cessation <Martha Seo - Last Filed: 12/25/17 21:41> - Disposition Referrals: [facility] [Outside] Condition: FAIR Instructions: Alcohol Abuse and Alcoholism (DC) Forms: [employer] (Spanish) - Clinical Impression Clinical Impression: Alcohol dependence - PA / [employer]ARR[employer] WORKER / Resident Statement MD/DO has reviewed & agrees with the documentation as recorded. - Scribe Statement The provider has reviewed the documentation as recorded by the Scribe <Ame Fonseca - Last Filed: 12/25/17 19:00> <Martha Seo - Last Filed: 12/25/17 21:41> - Scribe Statement Jaret Real All medical record entries made by the Scribe were at my direction and personally dictated by me. I have reviewed the chart and agree that the record accurately reflects my personal performance of the history, physical exam, medical decision making, and the department course for this patient. I have also personally directed, reviewed, and agree with the discharge instructions and disposition. (Ame Fonseca) Physician Patient Turnover Patient Signed Over To: Martha Seo Handoff Comments: pending crisis eval and acceptance for alcohol dependence <Ame Fonseca - Last Filed: 12/25/17 19:00>
[2017-12-25 18:14] LABS: URINE BILIRUBIN NEGATIVE (NEGATIVE); URINE BLOOD NEGATIVE (NEGATIVE); URINE CLARITY Clear (Clear); URINE COLOR Yellow (YELLOW); URINE GLUCOSE (UA) NORMAL (Normal); URINE LEUKOCYTE ESTERASE NEG Leu/uL (Negative); URINE PROTEIN NEGATIVE (NEGATIVE)
[2017-12-25 18:24] LABS: BASO % 0.6 % (0.0-2.0); EOS % 0.5 % (0.0-4.0); LYMPH # 1.9 K/uL (1.0-4.3); LYMPH % 35.4 % (20.0-40.0); MEAN CELL VOLUME 98.8 fL (80.0-94.0); MEAN CORPUSCULAR HEMOGLOBIN 34.5 pg (27.0-31.0); MEAN CORPUSCULAR HGB CONC 34.9 g/dL (33.0-37.0); MEAN PLATELET VOLUME 8.5 fL (7.2-11.7); MONO # 0.9 K/uL (0.0-0.8); MONO % 15.9 % (0.0-10.0); NEUT # 2.6 K/uL (1.8-7.0); NEUT % 47.6 % (50.0-75.0); NRBC % 0.1 % (0.0-2.0); RBC 3.15 Mil/uL (4.40-5.90); RED CELL DISTRIBUTION WIDTH 14.2 % (11.5-14.5); WHITE BLOOD COUNT 5.4 K/uL (4.8-10.8)
[2017-12-25 18:27] LABS: BARBITURATES, UR NEGATIVE (NEGATIVE); OPIATES, UR NEGATIVE (NEGATIVE); PHENCYCLIDINE, UR NEGATIVE (NEGATIVE)
[2017-12-25 18:29] LABS: BENZODIAZEPINES, UR POSITIVE (NEGATIVE)
[2017-12-25 18:32] LABS: HEMOGLOBIN 10.9 g/dL (12.0-18.0)
[2017-12-25 18:33] LABS: ALB/GLOB RATIO 1.4 (1.0-2.1); ALBUMIN 3.7 g/dL (3.5-5.0); ALT/SGPT 27 U/L (21-72); AST/SGOT 28 U/L (17-59); BLOOD UREA NITROGEN 16 mg/dL (9-20); CALCIUM 9.1 mg/dl (8.6-10.4); GFR NON-AFRICAN AMERICAN > 60
[2017-12-25] MEDS ORDERED: Magnesium Sulfate 1 gm in D5W 1 GM/100 ML BAG IV STA (18:40)
[2017-12-25 18:56] VITALS: TEMP 97.9
[2017-12-25] MEDS ORDERED: Magnesium Sulfate 1 gm in D5W 1 GM/100 ML BAG IVPB ONE (19:32)
[2017-12-25 19:53] VITALS: BP 150/92; PULSE 72; RESP 14; O2SAT 97
== END 2017-12-26 00:49 | disposition home or self-care (01) ==
LOC: C.ER 16:10
DX: F10.20 Alcohol dependence, uncomplicated (principal); Y90.9 Presence of alcohol in blood, level not specified
CPT/HCPCS: 80053; 80320; 80324; 80345; 80346; 80349; 80353; 80358; 80361; 81001; 83735; 83992; 84100; 85025; 96365; 99284; J3475

== ENCOUNTER 2017-12-26 13:35 | Inpatient (IN) | payer MEDICAID, OTHER ==
--- NOTE | 2017-12-26 13:48 | C.PDOC ---
History Of Present Illness 52 year old male patient presents to the ER requesting a detox for substance abuse. Patient have no other physical complaints. Patient denies nausea, vomiting and SI/HI. Time Seen by Provider: 12/26/17 13:44 Chief Complaint (Nursing): Substance Abuse History Per: Patient History/Exam Limitations: no limitations Past Medical History Reviewed: Historical Data, Nursing Documentation, Vital Signs Vital Signs: Last Vital Signs Temp 97.7 F 12/26/17 18:31 Pulse 79 12/26/17 18:31 Resp 18 12/26/17 18:31 BP 133/86 12/26/17 18:31 Pulse Ox 98 12/26/17 18:31 - Medical History PMH: COPD, CVA, Diabetes, HTN, Seizures (absences and grand mal seizures) Family History: States: Unknown Family Hx - Social History Hx Tobacco Use: Yes Hx Alcohol Use: Yes Hx Substance Use: No - Immunization History Hx Tetanus Toxoid Vaccination: No Hx Influenza Vaccination: No Hx Pneumococcal Vaccination: No Review Of Systems Except As Marked, All Systems Reviewed And Found Negative. Gastrointestinal: Negative for: Nausea, Vomiting Psych: Negative for: Suicidal ideation, Other (homicidal ideation) Physical Exam - Physical Exam Additional Physical Exam Comments: Constitutional: No acute distress. Head: Normocephalic. Atraumatic. Eyes: PERRL. ENT: Moist mucous membranes. Neck: Supple. Cardiovascular: Regular rate. Radial pulse 2+ bilaterally. Chest: No tenderness. Respiratory: Clear to auscultation bilaterally. GI: Soft. Nontender. Nondistended. Back: No CVA tenderness. Musculoskeletal: No tenderness or swelling of extremities. Skin: No rash. Neurologic: Alert, no focal deficit. ED Course And Treatment - Laboratory Results Result Diagrams: 12/26/17 14:11 12/26/17 14:11 O2 Sat by Pulse Oximetry: 98 (RA) Pulse Ox Interpretation: Normal Medical Decision Making Medical Decision Making: Impression: requesting detox Plans: -- drug screen -- alcohol serum stat -- blood work -- UA Reassess: patient is resting comfortably and remains stable. Patient will be seen by crisis for further evaluation. Disposition - Disposition Disposition: HOSPITALIZED Disposition Time: 16:27 Condition: FAIR - Clinical Impression Clinical Impression: Alcohol use disorder, severe, dependence - Scribe Statement The provider has reviewed the documentation as recorded by the Scribe Moreno Do Provider Attestation: All medical record entries made by the Jhony were at my direction and personally dictated by me. I have reviewed the chart and agree that the record accurately reflects my personal performance of the history, physical exam, medical decision making, and the department course for this patient. I have also personally directed, reviewed, and agree with the discharge instructions and disposition.
[2017-12-26 14:20] LABS: BASO % 0.8 % (0.0-2.0); EOS % 0.4 % (0.0-4.0); HEMOGLOBIN 11.7 g/dL (12.0-18.0); LYMPH # 1.5 K/uL (1.0-4.3); LYMPH % 28.2 % (20.0-40.0); MEAN CELL VOLUME 99.2 fL (80.0-94.0); MEAN CORPUSCULAR HGB CONC 34.3 g/dL (33.0-37.0); MEAN PLATELET VOLUME 9.1 fL (7.2-11.7); MONO # 0.7 K/uL (0.0-0.8); MONO % 12.9 % (0.0-10.0); NEUT % 57.7 % (50.0-75.0); NRBC % 0.1 % (0.0-2.0); RBC 3.45 Mil/uL (4.40-5.90); RED CELL DISTRIBUTION WIDTH 13.9 % (11.5-14.5); WHITE BLOOD COUNT 5.1 K/uL (4.8-10.8)
[2017-12-26 14:32] LABS: ALT/SGPT 25 U/L (21-72); AST/SGOT 26 U/L (17-59); BLOOD UREA NITROGEN 10 mg/dL (9-20); CALCIUM 9.1 mg/dl (8.6-10.4); GFR NON-AFRICAN AMERICAN > 60
[2017-12-26 14:33] LABS: ALBUMIN 3.9 g/dL (3.5-5.0)
[2017-12-26 14:44] LABS: ALB/GLOB RATIO 1.3 (1.0-2.1)
[2017-12-26 14:49] LABS: BARBITURATES, UR NEGATIVE (NEGATIVE); OPIATES, UR NEGATIVE (NEGATIVE); PHENCYCLIDINE, UR NEGATIVE (NEGATIVE)
[2017-12-26 14:54] LABS: URINE BILIRUBIN NEGATIVE (NEGATIVE); URINE BLOOD NEGATIVE (NEGATIVE); URINE CLARITY Clear (Clear); URINE COLOR Yellow (YELLOW); URINE GLUCOSE (UA) NORMAL (Normal); URINE LEUKOCYTE ESTERASE NEG Leu/uL (Negative); URINE PROTEIN NEGATIVE (NEGATIVE)
[2017-12-26 15:13] LABS: BENZODIAZEPINES, UR POSITIVE (NEGATIVE)
--- NOTE | 2017-12-26 16:39 | PCM.BM ---
<Ayah Edwards - Last Filed: 12/26/17 16:37> Treatment Plan Problems - Problems identified on initial assessmt potiential for autonomic instability related to alcohol withdrawal Date Initiated: 12/26/17 Time Initiated: 16:38 Assessment reference: NA Status: Active Treatment assets and liabiliti Patient Assests: ADL independent, cognitively intact Patient Liabilities: substance abuse, medical problems - Milieu Protocol Maintain good personal hygiene: daily Encourage regular showers, daily Remind patient to perform daily oral care, daily Assist patient to perform ADL's Maintain personal safety: every shift Educate patient to report safety concerns to staff, every shift Monitor environment for contraband/sharps Medication safety: Monitor for expected outcome, potential side effects: every shift, Assess barriers to learning: every shift, Assess readiness for medication education: every shift <Jeaneth Stewart - Last Filed: 12/28/17 13:51> Family Contact Family involvement: Famliy/SO not involved - Goals for Treatment Patient goals for treatment: Complete detox and discuss immediate move out of state with the counseling staff. Discharge/Continuing Care - Education Needs Education Needs: Patient Medication, Patient Diagnosis/Disease Process, Patient Coping Skills, Patient Anger Management skills, Patient Placement options, Patient Community resources (Moving to [place]) - Discharge Discharge Criteria: No longer exhibiting s/s of withdrawal, Reduction of target symptoms Discharge to:: Home, With Family - Treatment Team Participation Patient/Family/SO Statement: 12/28/17 13:52 "I'm gonna move to [place] after this. I gotta get outta here..." Discussed with Family/SO: No Was Patient/Family/SO present at Treatment Team Meeting: Yes <Jony Richardson - Last Filed: 12/28/17 13:55> - Diagnosis (1) Alcohol use disorder, severe, dependence Status: Acute Interventions: 12/28/17 13:55 * Assess 7x/week regarding severity of withdrawal * Educate regarding risks, benefits, side effects and alternatives of medications * Use Motivational Interviewing for abstinence * Use CBT for relapse prevention * Medication management for withdrawal symptoms * Encourage medication assisted treatment *
[2017-12-26] MEDS ORDERED: Albuterol HFA 90 mcg/actuation (8 g) INH PRN (16:48)
[2017-12-26] MEDS: Multiple Vitamins Tab PO SCH (18:00)
--- NOTE | 2017-12-27 09:28 | PCM.PSYCH ---
Initial Psychiatric Evaluation - Initial Psychiatric Evaluation Type of Admission: Voluntary Legal Status: Capacity Chief Complaint (in patient's own words): I came in to get help.' History of Present Illness and Precipitating Events: This is a 52 years old AAM, who currently lives with his and 2 kids, unemployed, with history of alcohol use disorder came to the ED to get hep in alcohol detox. Patient reports history of long history of abusing alcohol. As per the patient he has been drinking sniffing 1-2 pints daily. His last drink was 2-3 days ago. As per the pt he has h/o seizures so he came to get help in alcohol detox. Patient reports of withdrawal symptoms including anxiety, headaches and sweating. He reports anxiety but denies any feelings of hopelessness and helplessness. He denies any manic or psychotic symptoms. He denies any suicidal ideation or any homicidal ideation. Past medical history Seizures, HTN, DM Current Medications: Active Medications Generic Name Dose Route Start Last Admin Trade Name Freq PRN Reason Stop Dose Admin Albuterol 2 puff 12/26/17 16:48 Ventolin Hfa 90 Mcg/Actuation (8 G) INH Q4H PRN Wheezing Carvedilol 25 mg 12/26/17 18:00 12/26/17 18:00 Coreg PO 25 mg BID SANTIAGO Administration Chlordiazepoxide 25 mg 12/26/17 18:00 12/27/17 06:48 Librium PO 12/31/17 17:59 25 mg Q6 SANTIAGO Administration Taper Chlordiazepoxide 25 mg 12/26/17 16:47 Librium PO Q4H PRN Alcohol Withdrawal Clonidine HCl 0.1 mg 12/26/17 16:47 12/27/17 06:48 Catapres PO 0.1 mg Q4H PRN Administration Symptoms of alcohol withdrawl Enalapril Maleate 20 mg 12/27/17 10:00 Vasotec PO DAILY SANTIAGO Folic Acid 1 mg 12/26/17 17:00 12/26/17 18:00 Folic Acid PO 1 mg DAILY SANTIAGO Administration Gabapentin 300 mg 12/26/17 18:00 12/26/17 18:00 Neurontin PO 300 mg TID SANTIAGO Administration Hydroxyzine HCl 50 mg 12/26/17 16:51 Atarax PO Q6H PRN Anxiety Ibuprofen 600 mg 12/26/17 16:51 Motrin Tab PO Q6H PRN Pain, moderate (4-7) Metformin HCl 500 mg 12/26/17 17:15 12/27/17 08:59 Glucophage PO 500 mg BIDCC SANTIAGO Administration Multivitamins 1 tab 12/26/17 17:00 12/26/17 18:00 Hexavitamin PO 1 tab DAILY SANTIAGO Administration Thiamine HCl 100 mg 12/26/17 17:00 12/26/17 18:02 Vitamin B1 Tab PO 100 mg DAILY SANTIAGO Administration Trazodone HCl 50 mg 12/26/17 16:47 Desyrel PO HS PRN Insomnia Past Psychiatric History - Past Psychiatric History Previous Treatment History: Inpatient Pertinent Medical Hx (Current Medical&Sleep Prob, Allergies): Allergies Allergy/AdvReac Type Severity Reaction Status Date / Time No Known Allergies Allergy Verified 12/25/17 16:39 Carvedilol [Coreg] 25 mg PO BID #60 10/28/16 Omeprazole 20 mg PO DAILY 11/22/16 Simvastatin 40 mg PO DAILY 11/22/16 cloNIDine [clonidine HCl] 0.1 mg PO BID 11/22/16 Albuterol HFA [Ventolin HFA 90 mcg/actuation (8 g)] 2 puff INH Q6 PRN 07/25/17 Enalapril Maleate [Vasotec] 20 mg PO DAILY 07/25/17 Clotrimazole 1% Cream [Lotrimin 1%] 1 applic TP BID 12/25/17 Folic Acid 1 mg PO DAILY 12/25/17 Levetiracetam 750 mg PO BID 12/25/17 Thiamine [Vitamin B1] 100 mg PO DAILY 12/25/17 metFORMIN [glucOPHAGE] 500 mg PO BID 12/25/17 Review of Systems - Review of Systems All systems: reviewed and no additional remarkable complaints except - Psychiatric Psychiatric: Anxiety, Irritability. absent: Suicidal Ideation Mental Status Examination - Personal Presentation Personal Presentation: Looks stated age - Affect Affect: Constricted - Motor Activity Motor Activity: Calm - Reliability in Providing Information Reliability in Providing Information: Fair - Speech Speech: Organized - Mood Mood: Anxious - Formal Thought Process Formal Thought Process: No Impairment - Obsessions/Compulsions Obsessions: No Compulsions: No - Cognitive Functions Orientation: Person, Place, Situation, Time Sensorium: Alert Attention/Concentration: Attentive Abstract Thinking: Benson Estimate of Intelligence: Below average Judgement: Imparied, as evidence by: Poor judgement, Intact, as evidence by: Good judgement - Risk Risk: Suicidal, Homicidal, Withdrawal, Diminished functioning - Strength & Assets Inventory Strength & Assets Inventory: Family support DSM 5 DX - DSM 5 DSM 5 Diagnosis: Alcohol use disorder severe Alcohol withdrawal - Recommended/Plan of Treatment Treatment Recommendations and Plan of Treatment: Alcohol use disorder severe CBT Psychoeducation Supportive therapy, individual therapy librium prn MVI/Thiamine/Folic Acid Alcohol withdrawal CBT Psychoeducation Supportive therapy, individual therapy Use [place] for abstinence Gabapentin for augmentation Trazodone for insomnia Hydroxyzine for anxiety
[2017-12-27] MEDS: Multiple Vitamins Tab PO SCH (10:22)
[2017-12-28] MEDS: Multiple Vitamins Tab PO SCH (09:55)
--- NOTE | 2017-12-28 13:19 | PCM.PYCHPN ---
Psychiatric Progress Note - Psychiatric Progress Note Patient seen today, length of contact: 16 min Patient Chief Complaint: "I don't think I have an alcohol problem that much" Problems Identified/Issues Discussed: The pt is seen, chart reviewed, case discussed with staff. The pt is compliant with medications and reports no side-effects. Symptoms are improving but needs more time to stabilize. Pt attends groups and activities. Support given, psycho-education provided. After care discussed. He wants to go back to [place] where his and kids live He has been in [place] x4 months b/c of his drinking - his doesn't allow him. Plus he lost his sister in [place] He miniizes his alcohol problem, despite knowledge that he had had seizures. Medication Change: Yes (detox changes daily) Medical Record Reviewed: Yes Mental Status Examination - Cognitive Function Orientation: Person, Place, Situation, Time Memory: Intact Attention: Poor Concentration: Poor Association: WNL Fund of Knowledge: WNL - Mood Mood: Anxious - Affect Affect: Constricted - Formal Thought Process Formal Thought Process: No Impairment - Suicidal Ideation Suicidal Ideation: No - Homicidal Ideation Homicidal Ideation: No Goal/Treatment Plan - Goal/Treatment Plan Need for Continued Stay: Discharge may exacerbated symptoms, Severe functional impairment Progress Toward Problem(s) and Goals/Treatment Plan: Alcohol use disorder severe CBT Psychoeducation Supportive therapy, individual therapy librium prn MVI/Thiamine/Folic Acid Alcohol withdrawal CBT Psychoeducation Supportive therapy, individual therapy Use [place] for abstinence Gabapentin for augmentation Trazodone for insomnia Hydroxyzine for anxiety
[2017-12-29] MEDS: Multiple Vitamins Tab PO SCH (09:37)
--- NOTE | 2017-12-29 14:40 | PCM.PYCHPN ---
Psychiatric Progress Note - Psychiatric Progress Note Patient seen today, length of contact: 16 min Patient Chief Complaint: "I don't think I have an alcohol problem that much" Problems Identified/Issues Discussed: The pt is seen, chart reviewed, case discussed with staff. The pt is compliant with medications and reports no side-effects. Symptoms are improving but needs more time to stabilize. Pt attends groups and activities. Support given, psycho-education provided. After care discussed. He wants to go back to [place] where his and kids live He has been in [place] x4 months b/c of his drinking - his doesn't allow him. Plus he lost his sister in [place] He miniizes his alcohol problem, despite knowledge that he had had seizures. Medication Change: Yes (detox changes daily) Medical Record Reviewed: Yes Mental Status Examination - Cognitive Function Orientation: Person, Place, Situation, Time Memory: Intact Attention: Poor Concentration: Poor Association: WNL Fund of Knowledge: WNL - Mood Mood: Anxious - Affect Affect: Constricted - Formal Thought Process Formal Thought Process: No Impairment - Suicidal Ideation Suicidal Ideation: No - Homicidal Ideation Homicidal Ideation: No Goal/Treatment Plan - Goal/Treatment Plan Need for Continued Stay: Discharge may exacerbated symptoms, Severe functional impairment Progress Toward Problem(s) and Goals/Treatment Plan: Alcohol use disorder severe CBT Psychoeducation Supportive therapy, individual therapy librium prn MVI/Thiamine/Folic Acid Alcohol withdrawal CBT Psychoeducation Supportive therapy, individual therapy Use [place] for abstinence Gabapentin for augmentation Trazodone for insomnia Hydroxyzine for anxiety
--- NOTE | 2017-12-30 08:47 | PCM.PYCHDC ---
Mental Status Examination - Mental Status Examination Orientation: Person Discharge Summary - Discharge Note Consultations:: List each consultation separately and include: 1. Reason for request. 2. Findings. 3. Follow-up Summary of Hospital Course include:: 1. Description of specific treatment plan utilized for patients during their course of treatmen. 2. Summarize the time- course for resolution of acute symptoms and/or regressed behaviors. 3. Describe issues identified and worked on during hospitalization. 4. Describe medication utilized. 5. Describe medical problems identified and treated. 6. Reassessment of suicide risk Summary of Hospital Course: Refused referrals. He will go to [place], where his family is, and maybe AA. - Diagnosis (1) Alcohol use disorder, severe, dependence Current Visit: Yes Status: Acute - Final Diagnosis (DSM 5) Condition upon Discharge: FAIR Disposition: HOME/ ROUTINE Follow-up Treatment Plan: Alcohol use disorder severe CBT Psychoeducation Supportive therapy, individual therapy librium prn MVI/Thiamine/Folic Acid Alcohol withdrawal CBT Psychoeducation Supportive therapy, individual therapy Use MN for abstinence Gabapentin for augmentation Trazodone for insomnia Hydroxyzine for anxiety Prescriptions/Medication Reconciliation: Albuterol HFA [Ventolin HFA 90 mcg/actuation (8 g)] 2 puff INH Q6 PRN #1 inhaler PRN Reason: Wheezing Carvedilol [Coreg] 25 mg PO BID #60 tab Enalapril Maleate [Vasotec] 20 mg PO DAILY #30 tab Gabapentin [Neurontin] 300 mg PO BID #60 cap metFORMIN [glucOPHAGE] 500 mg PO BID #60 tab Multivitamins [Hexavitamin] 1 tab PO DAILY #30 tab traZODone [Desyrel] 50 mg PO HS PRN #30 tab PRN Reason: Insomnia
[2017-12-30] MEDS: Multiple Vitamins Tab PO SCH (10:08)
[2017-12-30 10:10] VITALS: BP 113/77
[2017-12-30 12:08] VITALS: PULSE 64; RESP 18; TEMP 98.8; O2SAT 100
== END 2017-12-30 11:00 | disposition home or self-care (01) | DRG 750 ==
LOC: C.ER 13:35 → C.7D 16:27
PROVIDERS: ADMIT Psychiatry & Neurology Psychiatry; ATTEND Psychiatry & Neurology Psychiatry
PROC: HZ2ZZZZ Detoxification Services for Substance Abuse Treatment (ICD-10-PCS; principal; 2017-12-26)
PROC: HZ52ZZZ Individual Psychotherapy for Substance Abuse Treatment, Cognitive-Behavioral (ICD-10-PCS; 2017-12-26)
PROC: HZ59ZZZ Individual Psychotherapy for Substance Abuse Treatment, Supportive (ICD-10-PCS; 2017-12-26)
PROC: HZ56ZZZ Individual Psychotherapy for Substance Abuse Treatment, Psychoeducation (ICD-10-PCS; 2017-12-26)
PROC: HZ42ZZZ Group Counseling for Substance Abuse Treatment, Cognitive-Behavioral (ICD-10-PCS; 2017-12-26)
PROC: HZ46ZZZ Group Counseling for Substance Abuse Treatment, Psychoeducation (ICD-10-PCS; 2017-12-26)
DX: F10.230 Alcohol dependence with withdrawal, uncomplicated (principal); J44.9 Chronic obstructive pulmonary disease, unspecified; Y90.0 Blood alcohol level of less than 20 mg/100 ml; E11.9 Type 2 diabetes mellitus without complications; F41.9 Anxiety disorder, unspecified; G40.802 Other epilepsy, not intractable, without status epilepticus; G47.00 Insomnia, unspecified; I10 Essential (primary) hypertension; Z86.73 Personal history of transient ischemic attack (TIA), and cerebral infarction without residual deficits; Z87.891 Personal history of nicotine dependence